=== PATIENT | female | born 1955 | race Caucasian/White ===

== ENCOUNTER 2021-07-04 22:32 | Inpatient (IN) | payer MEDICARE, SELFPAY ==
[2021-07-04 22:33] VITALS: BP 109/83; PULSE 97; RESP 14; TEMP 37.4; O2SAT 93; BMI 44.4
--- NOTE | 2021-07-04 22:43 | EKG12_ITS ---
Test Reason : DYSRHYTHMIA Blood Pressure : / mmHG Vent. Rate : 093 BPM Atrial Rate : 093 BPM P-R Int : 122 ms QRS Dur : 096 ms QT Int : 352 ms P-R-T Axes : 040 -10 038 degrees QTc Int : 437 ms Normal sinus rhythm Normal ECG Confirmed by ALLYSON PIERRE, MOOK ([id number]), assistant production editor NATASHA RAMIREZ ([id number]) on 07/05/2021 1:36:43 PM Referred By: PATRICIA Confirmed By:ISABELLA VALADEZ MD
--- NOTE | 2021-07-04 22:44 | ED.VIS.DYS ---
HPI History of Present Illness Chief Complaint: Shortness of Breath Detail of Chief Complaint: Shortness of breath worse over the last 24 hours Informant: patient Narrative Narrative: Patient presents with shortness of breath that is worsening over the last 24 hours. Patient was seen at [facility] 2 days ago and started on home oxygen. Patient diagnosed with COVID on June 25 and she has had symptoms since June 23. Patient denies any chest pain but does have some pain in her back. She describes headache. She describes intermittent fevers. Patient did not want to go back to [place] because they were not happy with care there at times. Patient has history of diabetes, hypertension, and high cholesterol. Patient's family member states that on 3 L of oxygen at home today she was dropping to 84%. [facility] Medical History (Updated 07/05/21 @ 00:[address] Oly Hodge, ) COVID Diabetes Hyperlipidemia Hypertension Allergy/AdvReac Type Severity Reaction Status Date / Time gabapentin Allergy Hives Verified 07/04/21 22:40 tramadol Allergy Hives Verified 07/04/21 22:40 Surgical History (Updated 07/04/21 @ 23:04 by Selvin Sy) History of History of hysterectomy History of lumpectomy Social History Smoking Status: Former smoker ROS [facility] ED Constitutional Constitutional ED: Reports systems reviewed and no addt'l complaints, except as documented and fever(s); Denies body ache(s), change in weight or chills Eyes Eyes: Denies acute decrease in peripheral vision, change in vision, double vision or loss of vision ENT ENT ED: Reports none; Denies ear pain, lip swelling, loss taste/smell, neck pain, otalgia or sore throat Cardiovascular Cardiovascular: Reports none; Denies abdominal pain, chest pain with activity, leg edema, lightheadedness, palpitations, rapid heart rate or syncope Respiratory/Chest Respiratory/Chest: Reports none, cough and dyspnea; Denies change in mental status, dry cough, hemoptysis, shortness of breath at rest or shortness of breath with exertion Gastrointestinal Gastrointestinal: Reports none; Denies abdominal pain, change in stool character, diarrhea, hematemesis, hematochezia, melena, rectal bleeding or vomiting Genitourinary Genitourinary ED: Reports none; Denies abdominal discomfort, anuria, dysuria, genital pain or polyuria Musculoskeletal Musculoskeletal: Reports none, back pain and myalgias; Denies arthralgias, difficulty walking, extremity pain or muscle weakness Integumentary Reports none; Denies abscess or rash Neurologic Neurologic: Reports none and headache(s); Denies abnormal gait, confusion, focal weakness, frequent falls, loss of vision, numbness, paresthesias, radicular pain, vertigo or weakness Psychiatric Psychiatric: Reports systems reviewed and no addt'l complaints, except as documented and none; Denies behavioral changes, confusion, difficulty concentrating, hallucinations, suicidal ideation, tactile hallucinations or visual hallucinations Endocrine Endocrinology: Denies none, cold intolerance, excessive sweating, fatigue or heat intolerance Hematologic/Lymphatic Hematologic/Lymphatic: Reports none; Denies anemia, easy bleeding or easy bruising Allergic/Immunologic Allergic/Immunologic ED: Denies as per HPI, none, lip swelling, mouth swelling, throat swelling, tongue swelling or hives EXAM Physical Exam Const Vital Signs: 07/04/21 22:33 07/04/21 22:53 07/04/21 23:45 Temperature 99.4 F H Temperature Source Temporal Pulse Rate 97 99 93 Respiratory Rate 14 18 15 Respiratory Effort Short of Breath Respiratory Depth Shallow Respiratory Pattern Irregular Blood Pressure 109/83 H 114/63 134/67 H Blood Pressure Mean 91 80 89 Pulse Ox 93 100 93 Oxygen Delivery Method Non-Rebreather Non-Rebreather Nasal Cannula Oxygen Flow Rate (L/min) 15 15 10 Positive well nourished and well developed General Appearance ED: well developed and NAD HEENT Reports TM's clear and moist mucous membranes normocephalic and atraumatic; Negative for trauma or tenderness Tympanic Membrane ED: Yes TM's clear Eyes PERRL and EOMs intact bilaterally General Eye ED: Negative for pale conjunctiva or scleral icterus Neck no lymphadenopathy, supple and no JVD General: Negative for tenderness Chest Wall inspection of chest normal and palpation of chest normal Chest: Negative for tenderness Resp normal respiratory effort and clear to auscultation bilaterally Effort and Inspection: Negative for respiratory distress or pain with movement Auscultation: rhonchi; Negative for diminished lung sounds Cardio regular rate, regular rhythm, S1 normal heart sound, S2 normal heart sound and no murmurs Peripheral Pulses: pulses 2+ throughout GI normal to inspection, nondistended, normoactive bowel sounds, soft to palpation, non-tender, non-distended and no masses Back/Spine no CVA tenderness and no thoracic nor lumbar tenderness Extremity normal to inspection General Extremety ED: Negative for edema General Extremity: Negative for edema Neuro oriented x3, CN's II-XII intact bilaterally, no sensory deficits noted and gait normal Sensorium / Orientation: awake, alert, oriented to person, oriented to place and oriented to time Motor Exam: strength 5/5 throughout and strength abnormal Psych mental status grossly normal Skin no rashes or lesions noted and no wounds MDM MDM MDM Narrative Medical decision making narrative: IV line established on arrival. Patient placed on high flow nasal cannula O2. Patient started on Decadron IV. Chest x-ray obtained interpreted by myself as bilateral infiltrates. CTA of the chest was obtained to rule out PE given the elevated D-dimer and COVID diagnosis and official reports pending from radiology however on my interpretation I do not appreciate any obvious large central pulmonary emboli. Case discussed with hospitalist will evaluate patient for admission for COVID-19 with hypoxemia Lab Data Attestation: I reviewed the patient's lab results. Labs: Laboratory Results - last 24 hr 07/04/21 07/04/21 07/04/21 22:47 22:47 22:47 WBC 4.9 RBC 3.81 L Hgb 10.5 L Hct 33.2 L MCV 87.1 MCH 27.6 MCHC 31.6 L RDW Std Deviation 44.3 H RDW Coeff of Adam 13.8 Plt Count 226 MPV 10.4 Immature Gran % (Auto) 1.800 H Neut % (Auto) 67.5 Lymph % (Auto) 22.5 Sherman % (Auto) 8.0 Eos % (Auto) 0.0 Baso % (Auto) 0.2 Absolute Neuts (auto) 3.3 Absolute Lymphs (auto) 1.10 Nucleated RBC % 0 D-Dimer Quant (PE/DVT) 1.19 H* Sodium 134 L Potassium 3.3 L Chloride 98 Carbon Dioxide 30.0 Anion Gap 6 BUN 30 H Creatinine 1.28 H Estim Creat Clear Calc 34.66 Est GFR (MDRD) Af Amer 54 L Est GFR (MDRD) Non-Af 44 L BUN/Creatinine Ratio 23.4 H Glucose 235 H Lactic Acid Calcium 8.6 Troponin I High Sens 12 07/04/21 22:47 WBC RBC Hgb Hct MCV MCH MCHC RDW Std Deviation RDW Coeff of Adam Plt Count MPV Immature Gran % (Auto) Neut % (Auto) Lymph % (Auto) Sherman % (Auto) Eos % (Auto) Baso % (Auto) Absolute Neuts (auto) Absolute Lymphs (auto) Nucleated RBC % D-Dimer Quant (PE/DVT) Sodium Potassium Chloride Carbon Dioxide Anion Gap BUN Creatinine Estim Creat Clear Calc Est GFR (MDRD) Af Amer Est GFR (MDRD) Non-Af BUN/Creatinine Ratio Glucose Lactic Acid 1.9 Calcium Troponin I High Sens Radiography Chest X-Ray - ED: 1 View Diagnostic Testing: Clinical Impression(s) from Imaging Studies Chest X-Ray 07/04/21 23:00 IMPRESSION: Bibasilar pulmonary infiltrates compatible with COVID pneumonia. Electronically Signed: Zeus Rico DO at 23:11 EST Tel [phone], Service support , 1 view chest x-ray obtained interpreted by myself as bilateral infiltrates. Radiology in agreement. EKG Initial EKG: Attestation: I personally reviewed and interpreted this EKG as follows: Comments: Sinus rhythm with a ventricular rate of 93 bpm with no acute ST segment changes Discharge Plan Triage Chief Complaint: Shortness of Breath ED Provider: Oly Hodge Dx/Rx/DC Orders Clinical Impression: COVID-19, Acute hypoxemic respiratory failure Primary Care Provider: Nico Guaman Referrals: Nico Guaman DO [Primary Care Provider] - Disposition Disposition: Acute Care Hospital [facility]
[2021-07-04] MEDS: dexAMETHasone 10 MG/ML Vial 6 MG IV (22:50)
[2021-07-04] MEDS: 0.9% Normal Saline 1,000 ML 150 ML IV (22:50)
[2021-07-04 22:53] VITALS: BP 114/63; PULSE 99; RESP 18; O2SAT 100; O2SAT 15
--- NOTE | 2021-07-04 23:00 | RAD_ITS ---
STUDY: X-RAY CHEST REASON FOR EXAM: Female, 66 years old. Dyspnea. COVID positive for 3 days. Increased shortness of breath today. TECHNIQUE: Single AP portable view of the chest. COMPARISON: None. FINDINGS: The lungs are hypoexpanded. There is patchy linear infiltrates at both lung bases. There is no demonstrated pleural abnormality. Normal size heart. Normal mediastinum and aura. Normal visualized pulmonary arteries. Normal visualized aortic arch and descending thoracic aorta. There are diffuse degenerative changes of the visualized thoracic spine. Normal visualized ribs, clavicles, and shoulders. There is no demonstrated abnormality of the visualized soft tissue structures of the upper abdomen. RAD/Chest 1 View (Portable) IMPRESSION: Bibasilar pulmonary infiltrates compatible with COVID pneumonia. Electronically Signed: Zeus Rico DO at 23:11 EST Tel [phone], Service support ,
[2021-07-04 23:07] LABS: Absolute Neutrophil Count 3.3 X10^3/uL (2.0-7.7); Basophil# 0.01 X10^3/uL; Basophil% 0.2 % (0-1); Hematocrit 33.2 % (37-47); Hemoglobin 10.5 g/dL (12.0-15.0); Lymphocyte % 22.5 % (19-41); Mean Corp Hgb Conc 31.6 g/dL (32-36); Mean Corpuscular Hgb 27.6 pg (27.0-32.0); Mean Corpuscular Volume 87.1 fL (81-99); Mean Platelet Vol. 10.4 fl (6.2-12.0); Monocyte# 0.39 X10^3/uL; NRBC Flagged by Analyzer 0 % (0-5); Neutrophil # 3.29 X10^3/uL (2.7-7.7); Neutrophil % 67.5 % (47-70); Platelet Count 226 K/mm3 (150-450); RBC Distribution Width CV 13.8 % (11.6-14.6); RBC Distribution Width SD 44.3 fl (35.1-43.9); Red Blood Count 3.81 M/mm3 (4.2-5.4); White Blood Count 4.9 K/mm3 (4.4-11.0)
[2021-07-04 23:27] LABS: Anion Gap 6 (5-15); BUN 30 mg/dL (7-18); BUN/Creat Ratio 23.4 RATIO (10-20); Calcium,Total 8.6 mg/dL (8.5-10.1); Chloride 98 mmol/L (98-107); Creatinine, Serum 1.28 mg/dL (0.55-1.02); EST Glomerular Filtration Rate 44 mL/min (>60); Est Glom Filt Rate - Afr Amer 54 mL/min (>60); Estimated Creatinine Clearance 34.66 ml/min; Glucose 235 mg/dL (74-106); Potassium 3.3 mmol/L (3.5-5.1); Sodium Level 134 mmol/L (136-145); Troponin-I HS 12 pg/mL (3.0-54.0)
[2021-07-04 23:28] LABS: D-Dimer Quantitative (DVT/PE) 1.19 FEU/ug/m (0.27-0.49)
--- NOTE | 2021-07-04 23:29 | CT_ITS ---
STUDY: CTA CHEST REASON FOR EXAM: Female, 66 years old. Dyspnea, elevated d-dimer RADIATION DOSAGE (If Supplied By Facility): CTDIvol = ( 17.36 ) mGy, DLP = ( 480.92 ) mGycm TECHNIQUE: The examination was performed with the intravenous administration of IV 100mL Isovue-370. Post-processing of the angiographic images was performed, with multiplanar reformation and 3D reconstruction. Individualized dose optimization techniques were used for this CT. COMPARISON: Concurrent chest radiograph FINDINGS: Normal enhancement of the main pulmonary artery and right and left pulmonary arteries. Normal enhancement of the bilateral peripheral pulmonary arteries. Respiratory motion complicates evaluation of the subsegmental pulmonary arteries. There is no demonstrated pulmonary embolism. Normal thoracic aorta and visualized great vessels. There is no demonstrated aortic dissection. Normal heart and pericardium. There are calcifications of the coronary arteries. Multiple enlarged mediastinal and bilateral hilar lymph nodes. Calcified right hilar lymph node. Normal visualized trachea and bronchi. The lungs are well expanded. Diffuse bilateral pulmonary groundglass densities. Normal pleura. Normal chest wall structures. There are degenerative changes of thoracic spine. Mild splenomegaly. CT/CTA Chest W/WO Contrast IMPRESSION: Diffuse multifocal pneumonia, presumably Covid, with reactive hilar and mediastinal lymph nodes. No central or segmental pulmonary embolism. No arterial dissection. Electronically Signed: Fitz Stapleton MD at 0:56 EST Tel , Service support ,
[2021-07-04 23:33] LABS: Lactic Acid 1.9 mmol/L (0.4-1.9)
[2021-07-04 23:45] VITALS: BP 134/67; PULSE 93; RESP 15; O2SAT 93
--- NOTE | 2021-07-04 23:57 | PCM.HP.STD ---
HPI - General General Date of Admission: 07/04/21 Date of Service: 07/04/21 Chief Complaint: COVID positive, worsening, hypoxic. HPI Narrative The patient is a 66 y/o F w/ PMHx: Morbid Obesity, Suspected chronic anemia, HTN, HLD, Diabetes mellitus type II, Former tobacco use who presents to the [facility] ED on 07/04/21 with history of COVID symptoms including fever, chills, headache, sore throat, mild altered sense of taste and smell, body aches, nausea, emesis, diarrhea all of those which have lessened however she still has ongoing cough and shortness of breath which has been worsening starting 06/23/21 with positive COVID testing on 06/25/21 in [place] with reported evaluation [facility] the ED at [facility] 2 days prior to current presentation with discharge on supplemental 2L NC oxygen and administration of steroids; however, she had increased dyspnea with low 80s oxygenation on 2-3L at home with more severe dyspnea on day of ED presentation prompting re-evaluation. Patient is not vaccinated against COVID-19. Work-up in the ED included T99.4, heart rate 97, BP 109/83, respiratory rate 14, initial presentation noted to be 93% on a nonrebreather with 15 L, CBC with WBC 4.9, hemoglobin 10.5, platelet 226 without marked shift, D-dimer 1.19, BMP with sodium 134, potassium 3.3, BUN/current and 30/1.28, glucose 235, lactic acid 1.9, high-sensitivity troponin 12, chest x-ray with bibasilar pulmonary infiltrates consistent with COVID-pneumonia, blood culture pending per ED, CTPA with diffuse multifocal pneumonia consistent with COVID-pneumonia with reactive hilar and mediastinal lymph nodes with no central or segmental PE or arterial dissection. In the ED patient ministered Decadron 6 mg IV x1 as well as normal saline. [facility] Medical History (Updated 07/05/21 @ 01:[address] Gabi Love MD) COVID Diabetes Former tobacco use Hyperlipidemia Hypertension Morbid obesity Home Medications atorvastatin 80 mg PO QHS 07/05/21 [History Last Taken Unknown] glyburide 1.25 mg PO BID 07/05/21 [History Last Taken Unknown] lisinopril-hydrochlorothiazide 1 tab PO DAILY 07/05/21 [History Last Taken Unknown] loratadine 10 mg PO QHS 07/05/21 [History Last Taken Unknown] metformin 850 mg PO TID 07/05/21 [History Last Taken Unknown] omeprazole-sodium bicarbonate [Zegerid] 1 packet PO QODAY 07/05/21 [History Last Taken Unknown] pioglitazone 15 mg PO DAILY 07/05/21 [History Last Taken Unknown] Allergy/AdvReac Type Severity Reaction Status Date / Time gabapentin Allergy Hives Verified 07/04/21 22:40 tramadol Allergy Hives Verified 07/04/21 22:40 Family History (Updated 07/05/21 @ 01:[address] Gabi Love MD) Mother PAF (paroxysmal atrial fibrillation) Heart disease Father Myocardial infarction Heart disease Surgical History (Updated 07/05/21 @ 01:[address] Gabi Love MD) H/O ovarian cystectomy History of History of hysterectomy History of lumpectomy Hx of tubal ligation S/P carpal tunnel release Social History (Updated 07/05/21 @ 01:[address] Gabi Love MD) household members: none Smoking Status: Former smoker how long ago did patient quit smoking: Quit 21 years prior, smoked ~ 1/2 ppd until quit, started as teen. alcohol intake: never substance use type: does not use ROS ROS Narrative Admission Review of Systems: CONSTITUTIONAL: No weight loss, + fever, chills, weakness or fatigue. HEENT: + Headache, sore throat, altered sense of taste and smell. Eyes: No visual loss, blurred vision, double vision or yellow sclerae. Ears, Nose, Throat: No hearing loss, sneezing. SKIN: No rash or itching, lesions, wounds. CARDIOVASCULAR: No chest pain, chest pressure or chest discomfort, palpitations, edema, orthopnea, syncopal events. RESPIRATORY: + shortness of breath, cough, No marked sputum, wheezing, hemoptysis. GASTROINTESTINAL: + anorexia, nausea, vomiting, diarrhea, No abdominal pain, melena, BRBPR. GENITOURINARY: No dysuria, frequency, urgency or retention. NEUROLOGICAL: + headache, No dizziness, syncope, paralysis, ataxia, numbness or tingling in the extremities, focal weakness, change in bowel or bladder control, seizure. MUSCULOSKELETAL: + muscle, back pain, joint pain or stiffness. HEMATOLOGIC: No anemia, bleeding or bruising. LYMPHATICS: No enlarged nodes. No history of splenectomy. PSYCHIATRIC: No history of depression or anxiety. ENDOCRINOLOGIC: No reports of sweating, cold or heat intolerance. No polyuria or polydipsia. ALLERGIES: No history of asthma, hives, eczema or rhinitis. Vital Signs Vital Signs Vital Signs: 07/04/21 22:33 07/04/21 22:53 07/04/21 23:45 Temperature 99.4 F H Temperature Source Temporal Pulse Rate 97 99 93 Respiratory Rate 14 18 15 Respiratory Effort Short of Breath Respiratory Depth Shallow Respiratory Pattern Irregular Blood Pressure 109/83 H 114/63 134/67 H Blood Pressure Mean 91 80 89 Pulse Ox 93 100 93 Oxygen Delivery Method Non-Rebreather Non-Rebreather Nasal Cannula Oxygen Flow Rate (L/min) 15 15 10 Weight Weight: 243 lb Body Mass Index (BMI) 44.4 Physical Exam Narrative Physical Examination: General: Awake, alert, oriented x 3 and cooperative, seated upright in the ED bed, fatigued and ill-appearing, increased respiratory rate and some accessory muscle usage, on 15 L currently. Skin: Normal color, normal turgor, no icterus, no cyanosis. HEENT: AT/NC, EOMI, PERRLA, moderately dry MM, no carotid bruits or JVD noted; however, thickened neck makes examination difficult. Lungs: Diffusely diminished, greater bases, increased respiratory rate, accessory muscle usage, evidence of respiratory distress, no rales, ronchi or wheezing. Heart: Mildly tachycardic with regular rhythm; no gallop, rub audible. Abdomen: Soft, morbidly obese, no obvious TTP, unable to discern distention given habitus, distant hyperactive bowel sounds, unable to discern HSM secondary to habitus. Extremities: No cyanosis, clubbing, or edema. Neurological: Patient awake, alert, oriented as noted, cognitive function intact; pupils equally reactive to light and accommodation, cranial nerves II-XII grossly normal, moving all 4 extremities, no focal deficits, strength severely globally decreased secondary to acute presentation. Psychiatric: Affect appears fatigued, ill-appearing, evidence of respiratory distress, no acute evidence of depressive or anxiety feelings. Results Lab / Micro Data Result Diagrams: 07/04/21 22:47 07/04/21 22:47 Labs: Laboratory Results - last 24 hr 07/04/21 22:47: WBC 4.9, RBC 3.81 L, Hgb 10.5 L, Hct 33.2 L, MCV 87.1, MCH 27.6, MCHC 31.6 L, RDW Std Deviation 44.3 H, RDW Coeff of Adam 13.8, Plt Count 226, MPV 10.4, Immature Gran % (Auto) 1.800 H, Neut % (Auto) 67.5, Lymph % (Auto) 22.5, Ramsey % (Auto) 8.0, Eos % (Auto) 0.0, Baso % (Auto) 0.2, Absolute Neuts (auto) 3.3, Absolute Lymphs (auto) 1.10, Nucleated RBC % 0 07/04/21 22:47: D-Dimer Quant (PE/DVT) 1.19 H* 07/04/21 22:47: Sodium 134 L, Potassium 3.3 L, Chloride 98, Carbon Dioxide 30.0, Anion Gap 6, BUN 30 H, Creatinine 1.28 H, Estim Creat Clear Calc 34.66, Est GFR (MDRD) Af Amer 54 L, Est GFR (MDRD) Non-Af 44 L, BUN/Creatinine Ratio 23.4 H, Glucose 235 H, Calcium 8.6, Troponin I High Sens 12 07/04/21 22:47: Lactic Acid 1.9 Radiology Impression Chest X-Ray 07/04/21 23:00 IMPRESSION: Bibasilar pulmonary infiltrates compatible with COVID pneumonia. Electronically Signed: Zeus Rico DO at 23:11 EST Tel [phone], Service support , Assessment & Plan Assessment/Plan (1) COVID-19: (2) Acute hypoxemic respiratory failure: (3) Pneumonia due to COVID-19 virus: PLAN: The patient is a 66 y/o F w/ PMHx: Morbid Obesity, Suspected chronic anemia, HTN, HLD, Diabetes mellitus type II, Former tobacco use who presents to the [facility] ED on 07/04/21 with history of COVID symptoms including fever, chills, headache, sore throat, mild altered sense of taste and smell, body aches, nausea, emesis, diarrhea all of those which have lessened however she still has ongoing cough and shortness of breath which has been worsening starting 06/23/21 with positive COVID testing on 06/25/21 in [place] with reported evaluation [facility] the ED at [facility] 2 days prior to current presentation with discharge on supplemental 2L NC oxygen and administration of steroids; however, she had increased dyspnea. #1. Acute Hypoxic Respiratory Failure secondary to Acute Bilateral Pneumonia secondary to Acute Viral Syndrome, COVID-19: Will admit to the PCU, maintain on COVID precautions, will maintain on oxygen with wean as tolerated to room air, PRN albuterol, HOB, IS parameters w/ pending sputum cultures and urine antigens, will obtain hepatic profile, procalcitonin, CRP, CPK, Ferritin, LDH and BNP, continue supportive care including q 2 hour turning including prone given no prone bed availability and judicious hydration, closely monitor for worsening status for ARDS and multiorgan failure, will initiate and continue IV decadron x 10 doses, given timeline patient is not a candidate for IV remdesivir. If respiratory status worsens and patient requires airvo or BIPAP transition will initiate barcitinib regimen additionally with ID involvement. #2. Hypertension: Continue home regimen including lisinopril?hydrochlorothiazide, PRN hydralazine. #3. Hyperlipidemia: Continue home statin regimen. #4. Diabetes mellitus type II: Hold oral home regimen, ADA diet, accu checks w/ ISS. #5. Suspected chronic anemia, normocytic: Admission Hgb 10.5, no baseline in system from prior, suspect chronic, will plan repeat CBC in AM and [place] health records requested. #6. Morbid Obesity: Weight loss and lifestyle changes encouraged, nutrition consulted. #7. Former tobacco use: Encouraged continued tobacco cessation. #8. DVT prophylaxis: SCDs, Lovenox. #9. CODE status: Patient does not have HCPOA or living will in place. Patient is an unvaccinated status with COVID-pneumonia with hypoxic respiratory failure therefore discussed CODE status at length including difference between FULL code, DNR-CCA and DNR-CC status. Following discussions about the differences in these status, requested Full Code status. Patient is amenable to Airvo, BiPAP as well as barcitinib if necessary. Advanced Care Planning Face to Face Time: 16 minutes. Charges/Coding Visit Charges Inpatient E&M: 33831 Init Hosp L3 Procedures Hospitalists Procedures: 46251 Advncd Care Plan 30 Min
[2021-07-05] VITALS (15 sets, daily range): BP systolic 113–150; BP diastolic 56–89; PULSE 59–110; RESP 16–20; TEMP 36.1–37.6; O2SAT 10–96; BMI 42.7
--- NOTE | 2021-07-05 01:22 | PCS.PANDOC ---
PANDEMIC DOCUMENTATION INITIATED: Date: 02/05/2021 Time: 190
--- NOTE | 2021-07-05 01:26 | NURSING ---
Patient requestin to have non-rebreather on due to being a mouth breather, states feels better
[2021-07-05 02:07] LABS: Ferritin 532 ng/mL (8-252); Magnesium 2.3 mg/dL (1.6-2.6)
[2021-07-05 02:11] LABS: BNP,B-Type NATRIURETIC PEPTIDE 15.9 pg/mL (0-100)
[2021-07-05] MEDS: Potassium Chloride Oral Tablet 20 MEQ 40 MEQ PO (02:12)
[2021-07-05] MEDS: guaiFENesin 10 ML UDC (200MG/10ML) 20 ML PO (02:12)
[2021-07-05] MEDS: BENZOCAINE/MENTHOL 1 LOZENGE MUCOUS MEM (02:13)
[2021-07-05] MEDS: 0.9% Normal Saline 1,000 ML 100 ML IV (02:13)
[2021-07-05 02:19] LABS: Procalcitonin 0.25 ng/mL (0.00-0.09)
[2021-07-05 06:04] LABS: Absolute Lymphocyte Count 0.61 X10^3/uL (0.83-4.51); Absolute Neutrophil Count 2.9 X10^3/uL (2.0-7.7); Basophil# 0.01 X10^3/uL; Basophil% 0.3 % (0-1); Hematocrit 31.4 % (37-47); Hemoglobin 9.8 g/dL (12.0-15.0); Lymphocyte # 0.61 X10^3/ul (0.83-4.51); Lymphocyte % 15.8 % (19-41); Mean Corp Hgb Conc 31.2 g/dL (32-36); Mean Corpuscular Hgb 27.1 pg (27.0-32.0); Mean Corpuscular Volume 86.7 fL (81-99); Mean Platelet Vol. 10.3 fl (6.2-12.0); Monocyte# 0.23 X10^3/uL; Monocyte% 5.9 % (0-10); NRBC Flagged by Analyzer 0 % (0-5); Neutrophil # 2.93 X10^3/uL (2.7-7.7); Neutrophil % 75.7 % (47-70); POSITIVE MORPHOLOGY YES; Platelet Count 232 K/mm3 (150-450); RBC Distribution Width CV 13.7 % (11.6-14.6); RBC Distribution Width SD 43.9 fl (35.1-43.9); Red Blood Count 3.62 M/mm3 (4.2-5.4); White Blood Count 3.9 K/mm3 (4.4-11.0)
[2021-07-05 06:17] LABS: Differential Indicated SCAN CRITERIA MET
[2021-07-05 06:41] LABS: ALB/GLOB Ratio 0.7 RATIO (0.9-2.4); AST(SGOT) 36 U/L (15-37); Alanine Aminotransfer ALT/SGPT 29 U/L (13-56); Albumin, Serum 2.7 g/dL (3.2-5.0); Alkaline Phosphatase 41 U/L (45-117); Anion Gap 9 (5-15); BUN 29 mg/dL (7-18); BUN/Creat Ratio 24.6 RATIO (10-20); Chloride 98 mmol/L (98-107); Creatinine, Serum 1.18 mg/dL (0.55-1.02); EST Glomerular Filtration Rate 49 mL/min (>60); Est Glom Filt Rate - Afr Amer 59 mL/min (>60); Estimated Creatinine Clearance 37.59 ml/min; Globulin 4.1 g/dL (2.2-4.2); Glucose 350 mg/dL (74-106); Potassium 4.3 mmol/L (3.5-5.1); Protein, Total 6.8 g/dL (6.4-8.2); Sodium Level 135 mmol/L (136-145)
[2021-07-05] MEDS: Insulin Lispro 100 UNIT/ML INSULN.PEN SC ×4 (07:04→20:14)
[2021-07-05 07:10] LABS: Bedside Glucose 346 mg/dL (70-110)
[2021-07-05] MEDS: Glucerna Shake 120 ML LIQUID PO (09:09)
[2021-07-05] MEDS: Lisinopril 20 MG Tablet PO (09:09)
[2021-07-05] MEDS: Enoxaparin 40 MG/0.4 ML Syringe SC ×2 (09:09→20:16)
[2021-07-05] MEDS: hydroCHLOROthiazide 25 MG Tablet PO (09:09)
[2021-07-05 12:16] LABS: Bedside Glucose 339 mg/dL (70-110)
--- NOTE | 2021-07-05 13:20 | CASEMGMT ---
RN CM DEBONE SUPERVISOR CM spoke w/patient for initial transition planning/care coordination assessment. RERE PRIETO introduced self and role at [facility]. Pt voices understanding and consents to assessment at this time. Pt is A/O at this time and answers all questions appropriately. Care providers, pharmacy, and demographics verified/updated at this time. COVID +. Pt stated testing was completed @ [facility] in [place]. PCP: Dr Nico Guaman Specialists: none Preferred Pharmacy: [facility] Retail Insurance: [employer] [facility] Prescription Benefit: Yes Living Will/HPOA: Pt does not currently have LW/HCPOA LNOK: SonBrandyn (lives in [place]). Son, Jose Luis BROWN, (lives in [place]) Living Arrangements: Lives alone in apartment. Has been staying w/her son, Brandyn, in [place], since Friday when she became ill. Brandyn's fiance, Shana Fishman, and 4 children also live in the home. Brandyn and Shana Fishman both had COVID @ end of May. They have both returned to work. The 4 children have not been ill and have returned back to school. Pt states they only have one bathroom in the home. RERE PRIETO instructed on importance of sanitizing after use. Pt states she sleeps on an adjustable bed @ her own home, but has been sleeping on a recliner @ her son's home in the living room. She states the rest of family only go into the living room on occasion, but they usually stay in their bedrooms. RERE PRIETO instructed on the importance of isolating from children as much as possible and to not share same living space. RERE PRIETO inquired if there was an option for her to stay isolated in a separate bedroom while @ her son's home. She states she does not think so, stating there is only one bedroom on the main floor and the 17-yr-old sleeps in there and also mentioned how the recliner would need to be moved, as she cannot sleep in a regular bed/cannot lay flat. Pt states @ her baseline she uses a walker and was independent in her apt, but d/t increased weakness, her son and Shana Fishman have been needing to assist her out of the recliner and to the bathroom and have been assisting w/getting fluids and food for her. Transportation: Pt, family DME: has the following DME: shower chair, walker, pulse ox, functioning glucometer. She states she thinks it is still @ her apartment, but plans to have her son pick it up for her to take to his home. She states is also out of glucometer strips. She has the [employer] brand glucometer and plans to ask son to get more strips @ [facility] for it. Pt was just in [place] ED a couple days ago and was set up w/home O2 through [employer] [facility] and that the small portable concentrator they gave her only goes up to 3 l/m. The portable concentrator is not at [facility] at this time, but pt states her son can bring it in @ time of discharge. While RN CM on the phone w/pt, pt received a call from [employer] to make arrangements for concentrator and portable tank to be delivered to pt's home. Pt informed the male worker from [facility] that she is currently hospitalized. Call placed to Dayanara @ [facility] in [place]: [phone]. She states pt's current O2 orders are for 2 l/m continuously. She is aware pt is hospitalized and plans to discharge to her son's home in [place]. She confirms they do service that area. She states the tank pt currently has is called an Ox-Life and it is a portable concentrator. She states it can only go up to 4l/m. She requests [employer] [facility] DME be notified at time of pt's discharge so they can deliver larger concentrator and portable O2 tank to pt's son's home. If pt requires more than 4lpm, will need O2 script and larger portable tank delivered to [facility] prior to discharge. Pt states is interested in Medical alert button info. List of companies that provide this given to RN to give to pt. HHC/SNF: No hx of either. Pt states does not want to go to a SNF--she wishes to d/c to her son's home, if able, stating, Hopefully I'll be well enough. Pt denies having preference of HHC agency. Aware [facility] has HHC and states would be agreeable to [facility] for therapy and states she would also like an aide as well. CM to follow for home oxygen needs and any further discharge planning/needs. Pt voices no further concerns/needs at this time. Advised pt to ask for CM if any further questions/concerns/needs arise. Voices understanding. PLAN: Home to son's house, if able, w/HHC for SN, PT/OT, and an aide. PT/OT evals pending. CM to follow for any increase in O2 needs @ d/c. Ellen RUIZN RN CM
--- NOTE | 2021-07-05 13:59 | PN.HOSP_ITS ---
Subjective Subjective Patient seen and examined. She looked quite weak. She said her shortness of breath was improving. She also complained of coughing. Review of symptoms otherwise negative. She was on 13 L of oxygen at time of review. Objective Data Objective Data Vital Signs: Vital Signs Temp Pulse Resp BP Pulse Ox 98.7 F 110 H 20 H 121/59 H 10 07/05/21 09:22 07/05/21 09:22 07/05/21 09:22 07/05/21 09:22 07/05/21 12:17 Oxygen Flow Rate (L/min) 92 Oxygen Delivery Method High Flow Weight: 233 lb 11.04 oz Body Mass Index (BMI) 42.7 Intake & Output: Intake and Output for Last 24 Hours 07/03/21 07/04/21 07/05/21 23:59 23:59 23:59 Intake Total 860 / 860 Balance 860 / 860 Lab / Micro Data Result Diagrams: 07/05/21 05:26 07/05/21 05:26 Labs: Laboratory Results - last 24 hr 07/04/21 22:47: WBC 4.9, RBC 3.81 L, Hgb 10.5 L, Hct 33.2 L, MCV 87.1, MCH 27.6, MCHC 31.6 L, RDW Std Deviation 44.3 H, RDW Coeff of Adam 13.8, Plt Count 226, MPV 10.4, Immature Gran % (Auto) 1.800 H, Neut % (Auto) 67.5, Lymph % (Auto) 22.5, Clay % (Auto) 8.0, Eos % (Auto) 0.0, Baso % (Auto) 0.2, Absolute Neuts (auto) 3.3, Absolute Lymphs (auto) 1.10, Nucleated RBC % 0 07/04/21 22:47: D-Dimer Quant (PE/DVT) 1.19 H* 07/04/21 22:47: Sodium 134 L, Potassium 3.3 L, Chloride 98, Carbon Dioxide 30.0, Anion Gap 6, BUN 30 H, Creatinine 1.28 H, Estim Creat Clear Calc 34.66, Est GFR (MDRD) Af Amer 54 L, Est GFR (MDRD) Non-Af 44 L, BUN/Creatinine Ratio 23.4 H, Glucose 235 H, Calcium 8.6, Troponin I High Sens 12 07/04/21 22:47: Lactic Acid 1.9 07/04/21 22:47: Magnesium 2.3, Ferritin 532 H, C-React Prot Ext Range 100.00 H 07/04/21 22:47: B-Natriuretic Peptide 15.9 07/04/21 22:47: Procalcitonin 0.25 H 07/05/21 05:26: WBC 3.9 L, RBC 3.62 L, Hgb 9.8 L, Hct 31.4 L, MCV 86.7, MCH 27.1, MCHC 31.2 L, RDW Std Deviation 43.9, RDW Coeff of Adam 13.7, Plt Count 232, MPV 10.3, Immature Gran % (Auto) 2.300 H, Neut % (Auto) 75.7 H, Lymph % (Auto) 15.8 L, Clay % (Auto) 5.9, Eos % (Auto) 0.0, Baso % (Auto) 0.3, Absolute Neuts (auto) 2.9, Absolute Lymphs (auto) 0.61 L, Nucleated RBC % 0 07/05/21 05:26: Sodium 135 L, Potassium 4.3, Chloride 98, Carbon Dioxide 28.0, Anion Gap 9, BUN 29 H, Creatinine 1.18 H, Estim Creat Clear Calc 37.59, Est GFR (MDRD) Af Amer 59 L, Est GFR (MDRD) Non-Af 49 L, BUN/Creatinine Ratio 24.6 H, Glucose 350 H, Calcium 8.0 L, Total Bilirubin 0.70, AST 36, ALT 29, Alkaline Phosphatase 41 L, Total Protein 6.8, Albumin 2.7 L, Globulin 4.1, Albumin/Globulin Ratio 0.7 L 07/05/21 07:02: POC Glucose 346 H 07/05/21 12:06: POC Glucose 339 H Micro: Microbiology 07/05/21 10:35 Sputum, Expectorated/Coughed Gram Stain - Final Radiography Diagnostic Testing: Radiology Impression Chest X-Ray 07/04/21 23:00 IMPRESSION: Bibasilar pulmonary infiltrates compatible with COVID pneumonia. Electronically Signed: Zeus Rico DO at 23:11 EST Tel [phone], Service support , Chest CTA 07/04/21 23:29 IMPRESSION: Diffuse multifocal pneumonia, presumably Covid, with reactive hilar and mediastinal lymph nodes. No central or segmental pulmonary embolism. No arterial dissection. Electronically Signed: Fitz Stapleton MD at 0:56 EST Tel , Service support , Physical Exam Const alert, oriented x3 and no apparent distress Constitutional Narrative: lethargic Exam Limitations: no limitations HEENT head/scalp atraumatic and moist oral mucous membranes Head and Scalp: normocephalic Eyes PERRL, EOMs intact bilaterally and conjunctivae normal Neck no lymphadenopathy Resp Resp Narrative: diminished breath sounds bibasally, no wheezes or crackles. On 13L of oxygen by nasal canula Cardio regular rate, regular rhythm, S1 normal heart sound and S2 normal heart sound GI normal to inspection, nondistended, normoactive bowel sounds, soft to palpation, non-tender and non-distended Extremity normal to inspection, full ROM and no clubbing, cyanosis or edema Peripheral Pulses: Yes pulses 2+ throughout Skin no rashes or lesions noted Neuro oriented x3, CN's II-XII intact bilaterally and moves all extremities Sensorium / Orientation: awake and alert Psych affect normal Assessment & Plan Assessment/Plan (1) Pneumonia due to COVID-19 virus: (2) Acute hypoxemic respiratory failure: PLAN: #Acute hypoxic respiratory failure due to covid 19 pneumonia * on 3L of oxygen. Titrate to maintain sats >90% * on decadron * symptoms staete don 06/23/2021; to remain in self isolation till 07/13/2021. * not a candidate for remdesivir due to her symptoms starting > 10 days ago. * If respiratory status worsens, will consult ID as she may be a candidate for baricitinib. * #Hypertension: on lisinopril and HCTZ. IV hydralazine prn #Hyperlipidemia: on statin Elevated D-dimer: D-dimer was 1.19. CTA of the chest negative for PE. Likely due to COVID. #Type 2 diabetes mellitus: On insulin sliding scale. Checks ACH S. #Hyperlipidemia: On statin #Morbid obesity: BMI is 42.7. Complicates acute care, expected recovery and prognosis. #GI prophylaxis: Pantoprazole. DVT prophylaxis: Lovenox 40mg bid Charges/Coding Visit Charges Inpatient E&M: 46159 Subs Hosp L3
[2021-07-05 16:36] LABS: Bedside Glucose 294 mg/dL (70-110)
[2021-07-05] MEDS: Loratadine 10 MG Tablet PO (20:16)
[2021-07-05] MEDS: Atorvastatin Calcium 80 MG Tablet PO (20:16)
[2021-07-05 20:31] LABS: Bedside Glucose 372 mg/dL (70-110)
--- NOTE | 2021-07-05 23:53 | NURSING ---
decrease 02 to 5lnc
[2021-07-06] VITALS (17 sets, daily range): BP systolic 114–147; BP diastolic 58–67; PULSE 55–80; RESP 16–20; TEMP 36.4–36.7; O2SAT 74–99
[2021-07-06] MEDS: guaiFENesin 10 ML UDC (200MG/10ML) 20 ML PO ×2 (03:14→08:36)
--- NOTE | 2021-07-06 03:19 | NURSING ---
pt got into a coughing spell. po drop to 84% on 5lnc. 02 increased to 8lnc and Robitussin given
[2021-07-06 05:59] LABS: Absolute Lymphocyte Count 0.91 X10^3/uL (0.83-4.51); Absolute Neutrophil Count 3.3 X10^3/uL (2.0-7.7); Basophil# 0.01 X10^3/uL; Basophil% 0.2 % (0-1); Hematocrit 30.7 % (37-47); Hemoglobin 9.5 g/dL (12.0-15.0); Lymphocyte # 0.91 X10^3/ul (0.83-4.51); Lymphocyte % 19.4 % (19-41); Mean Corp Hgb Conc 30.9 g/dL (32-36); Mean Corpuscular Hgb 27.2 pg (27.0-32.0); Mean Platelet Vol. 10.5 fl (6.2-12.0); Monocyte# 0.46 X10^3/uL; Monocyte% 9.8 % (0-10); NRBC Flagged by Analyzer 0 % (0-5); Neutrophil # 3.26 X10^3/uL (2.7-7.7); Neutrophil % 69.5 % (47-70); Platelet Count 284 K/mm3 (150-450); RBC Distribution Width CV 13.6 % (11.6-14.6); RBC Distribution Width SD 43.9 fl (35.1-43.9); Red Blood Count 3.49 M/mm3 (4.2-5.4); White Blood Count 4.7 K/mm3 (4.4-11.0)
[2021-07-06 06:24] LABS: Anion Gap 7 (5-15); BUN 34 mg/dL (7-18); BUN/Creat Ratio 27.9 RATIO (10-20); Calcium,Total 8.1 mg/dL (8.5-10.1); Chloride 101 mmol/L (98-107); Creatinine, Serum 1.22 mg/dL (0.55-1.02); EST Glomerular Filtration Rate 47 mL/min (>60); Est Glom Filt Rate - Afr Amer 57 mL/min (>60); Estimated Creatinine Clearance 36.36 ml/min; Glucose 278 mg/dL (74-106); Potassium 3.8 mmol/L (3.5-5.1); Sodium Level 137 mmol/L (136-145)
[2021-07-06] MEDS: Insulin Lispro 100 UNIT/ML INSULN.PEN SC ×4 (06:37→20:12)
[2021-07-06 06:46] LABS: Bedside Glucose 259 mg/dL (70-110)
--- NOTE | 2021-07-06 08:31 | CPS ---
PATIENT WEANED TO 5 LPM
[2021-07-06] MEDS: Pantoprazole Sodium 20 MG Tablet PO (08:36)
[2021-07-06] MEDS: Lisinopril 20 MG Tablet PO (08:36)
[2021-07-06] MEDS: dexAMETHasone 4 MG/ML Vial 6 MG IV (08:36)
[2021-07-06] MEDS: hydroCHLOROthiazide 25 MG Tablet PO (08:36)
[2021-07-06] MEDS: Acetaminophen 325 MG Tablet 650 MG PO (08:36)
[2021-07-06] MEDS: Enoxaparin 40 MG/0.4 ML Syringe SC ×2 (08:37→20:12)
[2021-07-06] MEDS: 0.9% Saline Lock 10 ML Syringe IV ×2 (08:37→20:12)
--- NOTE | 2021-07-06 11:18 | CASEMGMT ---
RERE PRIETO NOTE: Call placed to Martina @ [facility] in [place] @ [phone] to inform her anticipate pt will be medically ready for discharge home this weekend. RERE PRIETO inquired if Home O2 set-up could be arranged today, if possible. Per Martina, they would not be able to do home O2 set up today. She confirms the Ox-Life that was provided to pt goes up to 4l/m and can sustain pt for several days to weeks, if needed. She states if pt discharges home over the weekend w/4l/m or less O2, she can go home on the Ox-Life she currently has and they would arrange for home O2 set up sometime next week. She confirmed, if pt needs more than 4 l/m @ discharge, they can deliver a larger portable oxygen tank to [facility] for pt to go home on. She also confirms she is aware pt plans to discharge to pt's son's home in [place]. Call placed to pt and she was informed of all of the above. After RERE PRIETO spoke w/pt, pt's son, Brandyn, called this RERE PRIETO. He was also notified of all of the above. He states he has the Ox-Life/portable oxygen concentrator @ his home and he confirms he can bring it w/him when he comes to pick pt up @ discharge for pt to go home on. He is aware [facility] will deliver larger portable concentrator to [facility] for pt to go home on if she requires more than 4 lpm O2. Ellen RUIZN RERE PRIETO
--- NOTE | 2021-07-06 11:45 | CASEMGMT ---
Addendum entered by Alycia Palmer 07/06/21 13:23: Call from Amelia at [facility] and she states they can accept pt and do SOC 07/10/21. Amelia is aware that pt will be staying at son's home. Pt states her physician is in [place] and Amelia updated. Pt voices no further questions/concerns/needs. Green sheet left on chart for O2, HHC. Tyson JERNIGAN CM Original Note: Pt is currently on 4L nc. Call to Amelia at [facility] to see if they have reviewed pt for acceptance and she states she will call this RN CONNER back. Tyson JERNIGAN CM
[2021-07-06 12:00] LABS: Bedside Glucose 354 mg/dL (70-110)
--- NOTE | 2021-07-06 12:56 | PN.HOSP_ITS ---
Subjective Subjective Patient seen and examined. She feels quite weak today. She remains on oxygen and was on 5 L of oxygen at time of review. Review of systems otherwise negative. Objective Data Objective Data Vital Signs: Vital Signs Temp Pulse Resp BP Pulse Ox 97.8 F 63 16 114/58 L 95 07/06/21 12:02 07/06/21 12:02 07/06/21 12:02 07/06/21 12:02 07/06/21 12:02 Oxygen Flow Rate (L/min) 3 Oxygen Delivery Method Nasal Cannula Weight: 236 lb 15.951 oz Body Mass Index (BMI) 42.7 Intake & Output: Intake and Output for Last 24 Hours 07/04/21 07/05/21 07/06/21 23:59 23:59 23:59 Intake Total 2760 / 2760 600 / 600 Output Total 800 / 800 Balance 2760 / 2760 -200 / -200 Lab / Micro Data Result Diagrams: 07/06/21 04:25 07/06/21 04:25 Labs: Laboratory Results - last 24 hr 07/05/21 16:26: POC Glucose 294 H 07/05/21 20:13: POC Glucose 372 H 07/06/21 04:25: WBC 4.7, RBC 3.49 L, Hgb 9.5 L, Hct 30.7 L, MCV 88.0, MCH 27.2, MCHC 30.9 L, RDW Std Deviation 43.9, RDW Coeff of Adam 13.6, Plt Count 284, MPV 10.5, Immature Gran % (Auto) 1.100 H, Neut % (Auto) 69.5, Lymph % (Auto) 19.4, [place] % (Auto) 9.8, Eos % (Auto) 0.0, Baso % (Auto) 0.2, Absolute Neuts (auto) 3.3, Absolute Lymphs (auto) 0.91, Nucleated RBC % 0 07/06/21 04:25: Sodium 137, Potassium 3.8, Chloride 101, Carbon Dioxide 29.0, A nion Gap 7, BUN 34 H, Creatinine 1.22 H, Estim Creat Clear Calc 36.36, Est GFR (MDRD) Af Amer 57 L, Est GFR (MDRD) Non-Af 47 L, BUN/Creatinine Ratio 27.9 H, Glucose 278 H, Calcium 8.1 L 07/06/21 06:35: POC Glucose 259 H 07/06/21 11:37: POC Glucose 354 H Micro: Microbiology 07/05/21 10:35 Sputum, Expectorated/Coughed Gram Stain - Final 07/05/21 10:35 Sputum, Expectorated/Coughed Respiratory Culture - Preliminary Appears to be normal respiratory jodee. Further studies to follow. 07/06/21 03:45 Urine, Random Legionella Antigen - Final 07/06/21 03:45 Urine, Clean Catch Streptococcus pneumoniae Antigen (M - Final Physical Exam Const alert, oriented x3 and no apparent distress Constitutional Narrative: lethargic Exam Limitations: no limitations Nutritional Appearance: morbidly obese HEENT head/scalp atraumatic and moist oral mucous membranes Head and Scalp: normocephalic Eyes PERRL, EOMs intact bilaterally and conjunctivae normal Neck no lymphadenopathy Resp Resp Narrative: diminished breath sounds bibasally, no wheezes or crackles. On 5L of oxygen by nasal canula at time of review Cardio regular rate, regular rhythm, S1 normal heart sound and S2 normal heart sound GI normal to inspection, nondistended, normoactive bowel sounds, soft to palpation, non-tender and non-distended Extremity normal to inspection, full ROM and no clubbing, cyanosis or edema Skin no rashes or lesions noted Neuro oriented x3, CN's II-XII intact bilaterally and moves all extremities Sensorium / Orientation: awake and alert Psych affect normal Assessment & Plan Assessment/Plan (1) Pneumonia due to COVID-19 virus: (2) Acute hypoxemic respiratory failure: PLAN: #Acute hypoxic respiratory failure due to covid 19 pneumonia * on 5L of oxygen. Titrate to maintain sats >90% * on decadron * symptoms started 06/23/2021; to remain in self isolation till 07/13/2021. * not a candidate for remdesivir due to her symptoms starting > 10 days ago. * If respiratory status worsens, will consult ID as she may be a candidate for baricitinib. * #Hypertension: on lisinopril and HCTZ. IV hydralazine prn #Hyperlipidemia: on statin Elevated D-dimer: D-dimer was 1.19. CTA of the chest negative for PE. Likely due to COVID. #Type 2 diabetes mellitus: On insulin sliding scale. Checks ACH S. #Hyperlipidemia: On statin #Morbid obesity: BMI is 42.7. Complicates acute care, expected recovery and prognosis. #GI prophylaxis: Pantoprazole. DVT prophylaxis: Lovenox 40mg bid Charges/Coding Visit Charges Inpatient E&M: 00421 Subs Hosp L2
[2021-07-06 17:05] LABS: Bedside Glucose 374 mg/dL (70-110)
[2021-07-06] MEDS: Loratadine 10 MG Tablet PO (20:12)
[2021-07-06] MEDS: Atorvastatin Calcium 80 MG Tablet PO (20:12)
[2021-07-06 20:21] LABS: Bedside Glucose 418 mg/dL (70-110)
[2021-07-07] VITALS (13 sets, daily range): BP systolic 114–140; BP diastolic 59–78; PULSE 55–90; RESP 16–20; TEMP 36.6–37.2; O2SAT 85–95
[2021-07-07] MEDS: Insulin Lispro 100 UNIT/ML INSULN.PEN SC ×4 (06:37→22:55)
[2021-07-07 06:45] LABS: Bedside Glucose 282 mg/dL (70-110)
[2021-07-07 08:58] LABS: Absolute Lymphocyte Count 1.28 X10^3/uL (0.83-4.51); Absolute Neutrophil Count 4.9 X10^3/uL (2.0-7.7); Basophil# 0.01 X10^3/uL; Basophil% 0.1 % (0-1); Hematocrit 31.7 % (37-47); Hemoglobin 9.9 g/dL (12.0-15.0); Lymphocyte # 1.28 X10^3/ul (0.83-4.51); Lymphocyte % 18.8 % (19-41); Mean Corp Hgb Conc 31.2 g/dL (32-36); Mean Corpuscular Volume 86.6 fL (81-99); Mean Platelet Vol. 10.1 fl (6.2-12.0); Monocyte# 0.55 X10^3/uL; Monocyte% 8.1 % (0-10); NRBC Flagged by Analyzer 0 % (0-5); Neutrophil # 4.88 X10^3/uL (2.7-7.7); Neutrophil % 71.5 % (47-70); POSITIVE MORPHOLOGY YES; Platelet Count 386 K/mm3 (150-450); RBC Distribution Width CV 13.3 % (11.6-14.6); RBC Distribution Width SD 42.5 fl (35.1-43.9); Red Blood Count 3.66 M/mm3 (4.2-5.4); White Blood Count 6.8 K/mm3 (4.4-11.0)
[2021-07-07 09:05] LABS: Differential Indicated SCAN CRITERIA MET
[2021-07-07] MEDS: hydroCHLOROthiazide 25 MG Tablet PO (09:10)
[2021-07-07] MEDS: guaiFENesin 10 ML UDC (200MG/10ML) 20 ML PO ×2 (09:10→22:58)
[2021-07-07] MEDS: Acetaminophen 325 MG Tablet 650 MG PO (09:10)
[2021-07-07] MEDS: dexAMETHasone 4 MG/ML Vial 6 MG IV (09:10)
[2021-07-07] MEDS: Lisinopril 20 MG Tablet PO (09:10)
[2021-07-07] MEDS: 0.9% Saline Lock 10 ML Syringe IV ×2 (09:10→22:52)
[2021-07-07] MEDS: Enoxaparin 40 MG/0.4 ML Syringe SC ×2 (09:11→22:57)
[2021-07-07] MEDS: Ondansetron 4 MG/2 ML Vial IV (09:14)
[2021-07-07 09:18] LABS: Anion Gap 8 (5-15); BUN 27 mg/dL (7-18); BUN/Creat Ratio 24.3 RATIO (10-20); Calcium,Total 8.8 mg/dL (8.5-10.1); Chloride 102 mmol/L (98-107); Creatinine, Serum 1.11 mg/dL (0.55-1.02); EST Glomerular Filtration Rate 52 mL/min (>60); Est Glom Filt Rate - Afr Amer 63 mL/min (>60); Estimated Creatinine Clearance 39.96 ml/min; Glucose 261 mg/dL (74-106); Potassium 3.5 mmol/L (3.5-5.1); Sodium Level 137 mmol/L (136-145)
[2021-07-07 09:57] LABS: Differential Comment SCANNED; Reactive Lymphocyte 1+
[2021-07-07 11:50] LABS: Bedside Glucose 354 mg/dL (70-110)
--- NOTE | 2021-07-07 12:20 | PN.HOSP_ITS ---
Subjective Subjective Patient seen and examined. She was on 6 L. She said she had had a coughing spell that morning with her oxygen subsequently dropping that is where she had been put on 6 L. She is still coughing which I suspect to round. Review of systems otherwise negative. Objective Data Objective Data Vital Signs: Vital Signs Temp Pulse Resp BP Pulse Ox 98.4 F 74 18 114/62 90 07/07/21 09:10 07/07/21 09:10 07/07/21 09:10 07/07/21 09:10 07/07/21 11:59 Oxygen Flow Rate (L/min) [ 6 AMBULATING with Oxygen #1] Oxygen Flow Rate (L/min) [At 2 REST with Oxygen] Oxygen Flow Rate (L/min) 3 Oxygen Delivery Method Nasal Cannula Weight: 237 lb 14.06 oz Body Mass Index (BMI) 42.7 Intake & Output: Intake and Output for Last 24 Hours 07/05/21 07/06/21 07/07/21 23:59 23:59 23:59 Intake Total 2760 / 2760 1320 / 1320 360 / 360 Output Total 800 / 800 Balance 2760 / 2760 520 / 520 360 / 360 Lab / Micro Data Result Diagrams: 07/07/21 08:19 07/07/21 08:19 Labs: Laboratory Results - last 24 hr 07/06/21 16:46: POC Glucose 374 H 07/06/21 20:04: POC Glucose 418 H 07/07/21 06:36: POC Glucose 282 H 07/07/21 08:19: WBC 6.8, RBC 3.66 L, Hgb 9.9 L, Hct 31.7 L, MCV 86.6, MCH 27.0, MCHC 31.2 L, RDW Std Deviation 42.5, RDW Coeff of Adam 13.3, Plt Count 386, MPV 10.1, Immature Gran % (Auto) 1.500 H, Neut % (Auto) 71.5 H, Lymph % (Auto) 18.8 L, [place] % (Auto) 8.1, Eos % (Auto) 0.0, Baso % (Auto) 0.1, Absolute Neuts (auto) 4.9, Absolute Lymphs (auto) 1.28, Nucleated RBC % 0, Differential Comment SCANNED, Reactive Lymphocytes 1+ 07/07/21 08:19: Sodium 137, Potassium 3.5, Chloride 102, Carbon Dioxide 27.0, Anion Gap 8, BUN 27 H, Creatinine 1.11 H, Estim Creat Clear Calc 39.96, Est GFR (MDRD) Af Amer 63, Est GFR (MDRD) Non-Af 52 L, BUN/Creatinine Ratio 24.3 H, Glucose 261 H, Calcium 8.8 07/07/21 11:44: POC Glucose 354 H Micro: Microbiology 07/04/21 22:47 Blood Culture (Wb) - Anticubital Left Blood Culture - Preliminary No growth in 48 hours. 07/05/21 10:35 Sputum, Expectorated/Coughed Gram Stain - Final 07/05/21 10:35 Sputum, Expectorated/Coughed Respiratory Culture - Preliminary Appears to be normal respiratory jodee. Further studies to follow. 07/06/21 03:45 Urine, Random Legionella Antigen - Final 07/06/21 03:45 Urine, Clean Catch Streptococcus pneumoniae Antigen (M - Final Physical Exam Const alert, oriented x3 and no apparent distress Exam Limitations: no limitations Nutritional Appearance: morbidly obese HEENT head/scalp atraumatic and moist oral mucous membranes Head and Scalp: normocephalic Eyes PERRL, EOMs intact bilaterally and conjunctivae normal Neck no lymphadenopathy Resp Resp Narrative: diminished breath sounds bibasally, no wheezes or crackles. On 6L of oxygen by nasal canula at time of review Cardio regular rate, regular rhythm, S1 normal heart sound and S2 normal heart sound GI normal to inspection, nondistended, normoactive bowel sounds, soft to palpation, non-tender and non-distended Extremity normal to inspection, full ROM and no clubbing, cyanosis or edema Peripheral Pulses: Yes pulses 2+ throughout Skin no rashes or lesions noted Neuro oriented x3, CN's II-XII intact bilaterally and moves all extremities Sensorium / Orientation: awake and alert Psych affect normal Assessment & Plan Assessment/Plan (1) Pneumonia due to COVID-19 virus: (2) Acute hypoxemic respiratory failure: PLAN: #Acute hypoxic respiratory failure due to covid 19 pneumonia * on 6L of oxygen. Titrate to maintain sats >90% * on decadron * symptoms started 06/23/2021; to remain in self isolation till 07/13/2021. * not a candidate for remdesivir due to her symptoms starting > 10 days ago. * If respiratory status worsens, will consult ID as she may be a candidate for baricitinib. * #Hypertension: on lisinopril and HCTZ. IV hydralazine prn #Hyperlipidemia: on statin Elevated D-dimer: D-dimer was 1.19. CTA of the chest negative for PE. Likely due to COVID. #Type 2 diabetes mellitus: On insulin sliding scale. Checks ACH S. #Hyperlipidemia: On statin #Morbid obesity: BMI is 42.7. Complicates acute care, expected recovery and prognosis. #GI prophylaxis: Pantoprazole. DVT prophylaxis: Lovenox 40mg bid Charges/Coding Visit Charges Inpatient E&M: 90628 Subs Hosp L2
[2021-07-07 17:15] LABS: Bedside Glucose 403 mg/dL (70-110)
[2021-07-07] MEDS: Atorvastatin Calcium 80 MG Tablet PO (22:57)
[2021-07-07] MEDS: Loratadine 10 MG Tablet PO (22:57)
[2021-07-08] VITALS (13 sets, daily range): BP systolic 121–165; BP diastolic 58–65; PULSE 47–94; RESP 16–18; TEMP 36–37.1; O2SAT 90–98
[2021-07-08 00:40] LABS: Bedside Glucose 362 mg/dL (70-110)
[2021-07-08] MEDS: Insulin Lispro 100 UNIT/ML INSULN.PEN SC ×4 (06:39→22:46)
[2021-07-08 07:01] LABS: Bedside Glucose 248 mg/dL (70-110)
[2021-07-08] MEDS: Enoxaparin 40 MG/0.4 ML Syringe SC ×2 (08:40→22:48)
[2021-07-08] MEDS: dexAMETHasone 4 MG/ML Vial 6 MG IV (08:40)
[2021-07-08] MEDS: hydroCHLOROthiazide 25 MG Tablet PO (08:40)
[2021-07-08] MEDS: Lisinopril 20 MG Tablet PO (08:40)
[2021-07-08] MEDS: Pantoprazole Sodium 20 MG Tablet PO (08:40)
[2021-07-08 08:46] LABS: Basophil# 0.02 X10^3/uL; Basophil% 0.2 % (0-1); Eosinophil# 0.01 X10^3/uL; Eosinophils% 0.1 % (0-5); Hematocrit 31.9 % (37-47); Hemoglobin 10.2 g/dL (12.0-15.0); Lymphocyte % 17.5 % (19-41); Mean Corpuscular Hgb 27.7 pg (27.0-32.0); Mean Corpuscular Volume 86.7 fL (81-99); Monocyte# 0.78 X10^3/uL; NRBC Flagged by Analyzer 0 % (0-5); Neutrophil # 6.96 X10^3/uL (2.7-7.7); Neutrophil % 71.6 % (47-70); Platelet Count 399 K/mm3 (150-450); RBC Distribution Width CV 13.2 % (11.6-14.6); RBC Distribution Width SD 41.7 fl (35.1-43.9); Red Blood Count 3.68 M/mm3 (4.2-5.4); White Blood Count 9.7 K/mm3 (4.4-11.0)
[2021-07-08 09:01] LABS: Anion Gap 8 (5-15); BUN 25 mg/dL (7-18); BUN/Creat Ratio 23.6 RATIO (10-20); Calcium,Total 9.1 mg/dL (8.5-10.1); Chloride 99 mmol/L (98-107); Creatinine, Serum 1.06 mg/dL (0.55-1.02); EST Glomerular Filtration Rate 55 mL/min (>60); Est Glom Filt Rate - Afr Amer 67 mL/min (>60); Estimated Creatinine Clearance 41.85 ml/min; Glucose 268 mg/dL (74-106); Potassium 3.6 mmol/L (3.5-5.1); Sodium Level 136 mmol/L (136-145)
[2021-07-08 12:01] LABS: Bedside Glucose 360 mg/dL (70-110)
--- NOTE | 2021-07-08 14:50 | PN.HOSP_ITS ---
Subjective Subjective Patient seen and examined. She still complains of weakness. She still remains short of breath. She is on 6L of oxygen today. She is still coughing. Review of systems is otherwise negative. Objective Data Objective Data Vital Signs: Vital Signs Temp Pulse Resp BP Pulse Ox 98.1 F 74 16 134/58 H 93 07/08/21 11:54 07/08/21 11:54 07/08/21 11:54 07/08/21 11:54 07/08/21 11:54 Oxygen Flow Rate (L/min) [ 6 AMBULATING with Oxygen #1] Oxygen Flow Rate (L/min) [At 2 REST with Oxygen] Oxygen Flow Rate (L/min) 6 Oxygen Delivery Method Nasal Cannula Weight: 238 lb 1.588 oz Body Mass Index (BMI) 42.7 Intake & Output: Intake and Output for Last 24 Hours 07/06/21 07/07/21 07/08/21 23:59 23:59 23:59 Intake Total 1320 / 1320 840 / 840 Output Total 800 / 800 Balance 520 / 520 840 / 840 Lab / Micro Data Result Diagrams: 07/08/21 08:13 07/08/21 08:13 Labs: Laboratory Results - last 24 hr 07/07/21 17:09: POC Glucose 403 H 07/07/21 22:54: POC Glucose 362 H 07/08/21 06:37: POC Glucose 248 H 07/08/21 08:13: WBC 9.7, RBC 3.68 L, Hgb 10.2 L, Hct 31.9 L, MCV 86.7, MCH 27.7, MCHC 32.0, RDW Std Deviation 41.7, RDW Coeff of Adam 13.2, Plt Count 399, MPV 10.0, Immature Gran % (Auto) 2.600 H, Neut % (Auto) 71.6 H, Lymph % (Auto) 17.5 L, [place] % (Auto) 8.0, Eos % (Auto) 0.1, Baso % (Auto) 0.2, Absolute Neuts (auto) 7.0, Absolute Lymphs (auto) 1.70, Nucleated RBC % 0 07/08/21 08:13: Sodium 136, Potassium 3.6, Chloride 99, Carbon Dioxide 29.0, An ion Gap 8, BUN 25 H, Creatinine 1.06 H, Estim Creat Clear Calc 41.85, Est GFR (MDRD) Af Amer 67, Est GFR (MDRD) Non-Af 55 L, BUN/Creatinine Ratio 23.6 H, Glucose 268 H, Calcium 9.1 07/08/21 11:52: POC Glucose 360 H Micro: Microbiology 07/05/21 10:35 Sputum, Expectorated/Coughed Gram Stain - Final 07/05/21 10:35 Sputum, Expectorated/Coughed Respiratory Culture - Final Mixed normal respiratory jodee. No Streptococcus pneumoniae, beta-hemolytic Streptococcus or Staphylococcus aureus isolated. 07/04/21 22:47 Blood Culture (Wb) - Anticubital Left Blood Culture - Preliminary No growth in 48 hours. 07/06/21 03:45 Urine, Random Legionella Antigen - Final 07/06/21 03:45 Urine, Clean Catch Streptococcus pneumoniae Antigen (M - Final Physical Exam Const alert, oriented x3 and no apparent distress Exam Limitations: no limitations Nutritional Appearance: morbidly obese HEENT head/scalp atraumatic and moist oral mucous membranes Head and Scalp: normocephalic Eyes PERRL, EOMs intact bilaterally and conjunctivae normal Neck no lymphadenopathy Resp Resp Narrative: diminished breath sounds bibasally, no wheezes or crackles. On 6L of oxygen by nasal canula at time of review Cardio regular rate, regular rhythm, S1 normal heart sound and S2 normal heart sound GI normal to inspection, nondistended, normoactive bowel sounds, soft to palpation, non-tender and non-distended Extremity normal to inspection, full ROM and no clubbing, cyanosis or edema Peripheral Pulses: Yes pulses 2+ throughout Skin no rashes or lesions noted Neuro oriented x3, CN's II-XII intact bilaterally and moves all extremities Sensorium / Orientation: awake and alert Psych affect normal Assessment & Plan Assessment/Plan (1) Pneumonia due to COVID-19 virus: (2) Acute hypoxemic respiratory failure: PLAN: #Acute hypoxic respiratory failure due to covid 19 pneumonia * on 6L of oxygen. Titrate to maintain sats >90% * on decadron * symptoms started 06/23/2021; to remain in self isolation till 07/13/2021. * not a candidate for remdesivir due to her symptoms starting > 10 days prior to admission. * consider ID consult if respiratory status worsens. * #Hypertension: on lisinopril and HCTZ. IV hydralazine prn #Hyperlipidemia: on statin Elevated D-dimer: D-dimer was 1.19. CTA of the chest negative for PE. Likely due to COVID. #Type 2 diabetes mellitus: On insulin sliding scale. Checks ACH S. #Hyperlipidemia: On statin #Morbid obesity: BMI is 42.7. Complicates acute care, expected recovery and prognosis. #GI prophylaxis: Pantoprazole. DVT prophylaxis: Lovenox 40mg bid Charges/Coding Visit Charges Inpatient E&M: 34522 Subs Hosp L2
[2021-07-08 17:20] LABS: Bedside Glucose 431 mg/dL (70-110)
[2021-07-08] MEDS: 0.9% Saline Lock 10 ML Syringe IV (22:45)
[2021-07-08] MEDS: Atorvastatin Calcium 80 MG Tablet PO (22:49)
[2021-07-08] MEDS: Loratadine 10 MG Tablet PO (22:49)
[2021-07-08] MEDS: Acetaminophen 325 MG Tablet 650 MG PO (22:53)
[2021-07-08 23:10] LABS: Bedside Glucose 415 mg/dL (70-110)
[2021-07-09] VITALS (12 sets, daily range): BP systolic 115–152; BP diastolic 61–76; PULSE 49–95; RESP 16–18; TEMP 36.2–37.1; O2SAT 92–98
[2021-07-09] MEDS: Insulin Lispro 100 UNIT/ML INSULN.PEN SC ×4 (06:25→16:17)
[2021-07-09 06:31] LABS: Bedside Glucose 294 mg/dL (70-110)
[2021-07-09 07:14] LABS: Hematocrit 32.7 % (37-47); Hemoglobin 10.5 g/dL (12.0-15.0); Mean Corp Hgb Conc 32.1 g/dL (32-36); Mean Corpuscular Hgb 27.6 pg (27.0-32.0); Mean Corpuscular Volume 86.1 fL (81-99); POSITIVE COUNT YES; POSITIVE MORPHOLOGY YES; Platelet Count 437 K/mm3 (150-450); RBC Distribution Width CV 13.1 % (11.6-14.6); RBC Distribution Width SD 40.8 fl (35.1-43.9); White Blood Count 9.5 K/mm3 (4.4-11.0)
[2021-07-09 07:15] LABS: Differential Indicated MANUAL DIFF
[2021-07-09 07:37] LABS: Eosinophil 1 % (0-5); Lymphocyte 18 % (19-41); Metamyelocyte 4 % (0-1); Neutrophil-Band 2 % (0-5); Neutrophil-Segmented 75 % (47-70); Platelet Estimate ADEQUATE (ADEQ); Platelet Morphology LARGE; Red Cell Morphology NORM C+C NORMAL (NORM C&C); Total Cells Counted 100 (MANUAL DIFF)
[2021-07-09 07:38] LABS: Anion Gap 9 (5-15); BUN 28 mg/dL (7-18); BUN/Creat Ratio 25.9 RATIO (10-20); Calcium,Total 9.8 mg/dL (8.5-10.1); Chloride 97 mmol/L (98-107); Creatinine, Serum 1.08 mg/dL (0.55-1.02); EST Glomerular Filtration Rate 54 mL/min (>60); Est Glom Filt Rate - Afr Amer 65 mL/min (>60); Estimated Creatinine Clearance 41.07 ml/min; Glucose 309 mg/dL (74-106); Potassium 4.1 mmol/L (3.5-5.1); Sodium Level 135 mmol/L (136-145)
[2021-07-09 07:42] LABS: Absolute Lymphocyte Count 1.71 X10^3/uL (0.83-4.51); Absolute Neutrophil Count 7.3 X10^3/uL (2.0-7.7); Lymphocyte # 1.71 X10^3/ul (0.83-4.51); Neutrophil # 7.31 X10^3/uL (2.7-7.7)
[2021-07-09] MEDS: 0.9% Saline Lock 10 ML Syringe IV ×3 (10:12→16:29)
[2021-07-09] MEDS: dexAMETHasone 4 MG/ML Vial 6 MG IV (10:12)
[2021-07-09] MEDS: Lisinopril 20 MG Tablet PO (10:12)
[2021-07-09] MEDS: Enoxaparin 40 MG/0.4 ML Syringe SC ×2 (10:12→20:57)
[2021-07-09] MEDS: hydroCHLOROthiazide 25 MG Tablet PO (10:12)
[2021-07-09 11:45] LABS: Bedside Glucose 372 mg/dL (70-110)
[2021-07-09 14:29] LABS: Pathologist Review Reviewed
--- NOTE | 2021-07-09 15:02 | PN.HOSP_ITS ---
Subjective Subjective Feels about the same as yesterday however she did have an increase in her oxygen requirements today to about 12 L nasal cannula. Continue to encourage ambulation as well as proning and incentive spirometry Objective Data Objective Data Vital Signs: Vital Signs Temp Pulse Resp BP Pulse Ox 97.1 F L 71 18 146/64 H 92 07/09/21 09:49 07/09/21 13:04 07/09/21 09:49 07/09/21 09:49 07/09/21 09:49 Oxygen Flow Rate (L/min) [ 6 AMBULATING with Oxygen #1] Oxygen Flow Rate (L/min) [At 2 REST with Oxygen] Oxygen Flow Rate (L/min) 12 Oxygen Delivery Method Nasal Cannula Weight: 235 lb 0.204 oz Body Mass Index (BMI) 42.7 Intake & Output: Intake and Output for Last 24 Hours 07/08/21 07/09/21 07/10/21 03:59 03:59 03:59 Intake Total 840 / 840 600 / 600 Output Total 1200 / 1200 1000 / 1000 Balance 840 / 840 -600 / -600 -1000 / -1000 Lab / Micro Data Result Diagrams: 07/09/21 07:00 07/09/21 07:00 Labs: Laboratory Results - last 24 hr 07/08/21 17:06: POC Glucose 431 H 07/08/21 22:42: POC Glucose 415 H 07/09/21 06:24: POC Glucose 294 H 07/09/21 07:00: WBC 9.5, RBC 3.80 L, Hgb 10.5 L, Hct 32.7 L, MCV 86.1, MCH 27.6, MCHC 32.1, RDW Std Deviation 40.8, RDW Coeff of Adam 13.1, Plt Count 437, MPV 10.0, Neut % (Auto) Not Reportable, Absolute Neuts (auto) 7.3, Absolute Lymphs (auto) 1.71, Total Counted 100, Neutrophils % (Manual) 75 H, Band Neutrophils % 2, Lymphocytes % (Manual) 18 L, Eosinophils % (Manual) 1, Metamyelocytes % 4 H, Diff Path Review Reviewed, Platelet Estimate ADEQUATE, Plt Morphology Comment LARGE, RBC Morphology NORM C+C 07/09/21 07:00: Sodium 135 L, Potassium 4.1, Chloride 97 L, Carbon Dioxide 29.0, Anion Gap 9, BUN 28 H, Creatinine 1.08 H, Estim Creat Clear Calc 41.07, Est GFR (MDRD) Af Amer 65, Est GFR (MDRD) Non-Af 54 L, BUN/Creatinine Ratio 25.9 H, Glucose 309 H, Calcium 9.8 07/09/21 11:38: POC Glucose 372 H Micro: Microbiology 07/05/21 10:35 Sputum, Expectorated/Coughed Gram Stain - Final 07/05/21 10:35 Sputum, Expectorated/Coughed Respiratory Culture - Final Mixed normal respiratory jodee. No Streptococcus pneumoniae, beta-hemolytic Streptococcus or Staphylococcus aureus isolated. 07/04/21 22:47 Blood Culture (Wb) - Anticubital Left Blood Culture - Preliminary No growth in 48 hours. 07/06/21 03:45 Urine, Random Legionella Antigen - Final 07/06/21 03:45 Urine, Clean Catch Streptococcus pneumoniae Antigen (M - Final Physical Exam Const alert, oriented x3 and no apparent distress General Appearance: cooperative HEENT normocephalic and moist oral mucous membranes Eyes PERRL, EOMs intact bilaterally and conjunctivae normal Neck supple and no JVD Resp normal respiratory effort, no retractions and no use of accessory muscles Auscultation: crackles and diminished lung sounds; Negative for rales, rhonchi or wheezes Cardio regular rate, regular rhythm, S1 normal heart sound, S2 normal heart sound and no murmurs GI soft to palpation, non-tender and non-distended; Negative for hepatosplenomegaly Extremity no clubbing, cyanosis or edema Skin no rashes or lesions noted Neuro no focal motor deficits and no sensory deficits noted Psych Mood & Affect: flat affect Assessment & Plan Assessment/Plan (1) Pneumonia due to COVID-19 virus: (2) Acute hypoxemic respiratory failure: PLAN: #Acute hypoxic respiratory failure due to covid 19 pneumonia * Delete titrate to maintain sats >90% * on decadron * symptoms started 06/23/2021; to remain in self isolation till 07/13/2021. * not a candidate for remdesivir due to her symptoms starting > 10 days prior to admission. * Will obtain a sputum culture today as well as give her some Lasix secondary to crackles on exam * If necessary can consult infectious disease and pulmonology if she progresses to needing Airvo, for initiation of baricitinib * D-dimer was elevated, CTA was negative for PE #Hypertension: on lisinopril and HCTZ. IV hydralazine prn #Hyperlipidemia: on statin #Type 2 diabetes mellitus: On insulin sliding scale. Accu-Cheks AC at bedtime, will make adjustments as necessary #Hyperlipidemia: On statin #Morbid obesity: BMI is 42.7. Complicates acute care, expected recovery and prognosis. #GI prophylaxis: Pantoprazole. DVT: Lovenox 40mg bid Charges/Coding Visit Charges Inpatient E&M: 72466 Subs Hosp L2
[2021-07-09] MEDS: Furosemide 40 MG/4 ML Vial IV (16:19)
--- NOTE | 2021-07-09 16:31 | CASEMGMT ---
Amelia at [facility] aware that pt is currently on 11-12L oxygen and no plan for d/c at this time, voices understanding. Tyson JERNIGAN CM
[2021-07-09 16:40] LABS: Bedside Glucose 452 mg/dL (70-110)
[2021-07-09] MEDS: Acetaminophen 325 MG Tablet 650 MG PO (20:56)
[2021-07-09] MEDS: Atorvastatin Calcium 80 MG Tablet PO (20:56)
[2021-07-09] MEDS: Loratadine 10 MG Tablet PO (20:56)
--- NOTE | 2021-07-09 21:00 | NURSING ---
Pt's glucose elevated at 536. This RN notified (Dr. Luis) per order. ordered a one time dose of 18 units of humalog to be given. No additional orders at this time.
[2021-07-09 21:05] LABS: Bedside Glucose > 500 mg/dL (70-110)
[2021-07-09] MEDS: Insulin Lispro 100 UNIT/ML INSULN.PEN 18 UNIT SC (21:47)
[2021-07-10] VITALS (9 sets, daily range): BP systolic 119–129; BP diastolic 59–64; PULSE 54–92; RESP 16–17; TEMP 36–36.6; O2SAT 95–99
[2021-07-10 06:54] LABS: Hematocrit 32.8 % (37-47); Hemoglobin 10.4 g/dL (12.0-15.0); Mean Corp Hgb Conc 31.7 g/dL (32-36); Mean Corpuscular Hgb 27.3 pg (27.0-32.0); Mean Corpuscular Volume 86.1 fL (81-99); Mean Platelet Vol. 10.1 fl (6.2-12.0); POSITIVE COUNT YES; POSITIVE MORPHOLOGY YES; Platelet Count 459 K/mm3 (150-450); RBC Distribution Width SD 40.4 fl (35.1-43.9); Red Blood Count 3.81 M/mm3 (4.2-5.4); White Blood Count 9.8 K/mm3 (4.4-11.0)
[2021-07-10 06:56] LABS: Differential Indicated MANUAL DIFF
[2021-07-10 07:10] LABS: Neutrophil-Segmented 72 % (47-70); Total Cells Counted 100 (MANUAL DIFF)
[2021-07-10 07:11] LABS: Lymphocyte 18 % (19-41); Metamyelocyte 2 % (0-1); Monocyte 8 % (0-10)
[2021-07-10 07:12] LABS: Absolute Lymphocyte Count 1.76 X10^3/uL (0.83-4.51); Absolute Neutrophil Count 7.3 X10^3/uL (2.0-7.7); Lymphocyte # 1.76 X10^3/ul (0.83-4.51); Neutrophil # 7.25 X10^3/uL (2.7-7.7)
[2021-07-10 07:14] LABS: Anion Gap 8 (5-15); BUN 40 mg/dL (7-18); BUN/Creat Ratio 33.3 RATIO (10-20); Calcium,Total 9.6 mg/dL (8.5-10.1); Chloride 94 mmol/L (98-107); EST Glomerular Filtration Rate 48 mL/min (>60); Est Glom Filt Rate - Afr Amer 58 mL/min (>60); Estimated Creatinine Clearance 36.97 ml/min; Glucose 395 mg/dL (74-106); Platelet Estimate SLT INC (ADEQ); Red Cell Morphology NORM C+C NORMAL (NORM C&C); Sodium Level 133 mmol/L (136-145)
[2021-07-10] MEDS: Insulin Lispro 100 UNIT/ML INSULN.PEN SC ×4 (09:39→22:12)
[2021-07-10] MEDS: Insulin Lispro 100 UNIT/ML INSULN.PEN 10 UNIT SC ×2 (09:41→11:02)
[2021-07-10 09:51] LABS: Bedside Glucose 393 mg/dL (70-110)
[2021-07-10] MEDS: Enoxaparin 40 MG/0.4 ML Syringe SC ×2 (11:01→22:11)
[2021-07-10] MEDS: dexAMETHasone 4 MG/ML Vial 6 MG IV (11:01)
[2021-07-10] MEDS: Lisinopril 20 MG Tablet PO (11:01)
[2021-07-10] MEDS: hydroCHLOROthiazide 25 MG Tablet PO (11:01)
[2021-07-10] MEDS: Pantoprazole Sodium 20 MG Tablet PO (11:01)
[2021-07-10] MEDS: 0.9% Saline Lock 10 ML Syringe IV (11:02)
[2021-07-10 12:40] LABS: Bedside Glucose 371 mg/dL (70-110)
[2021-07-10 13:36] LABS: Pathologist Review Reviewed
--- NOTE | 2021-07-10 13:49 | PN.HOSP_ITS ---
Subjective Subjective Feels better now that her blood sugars are being managed as well as the Lasix. She still has some crackles on exam today Objective Data Objective Data Vital Signs: Vital Signs Temp Pulse Resp BP Pulse Ox 96.8 F L 74 16 129/63 H 95 07/10/21 11:07 07/10/21 11:07 07/10/21 11:07 07/10/21 11:07 07/10/21 11:07 Oxygen Flow Rate (L/min) [ 6 AMBULATING with Oxygen #1] Oxygen Flow Rate (L/min) [At 2 REST with Oxygen] Oxygen Flow Rate (L/min) 7 Oxygen Delivery Method Nasal Cannula Weight: 230 lb 8 oz Body Mass Index (BMI) 42.7 Intake & Output: Intake and Output for Last 24 Hours 07/09/21 07/10/21 07/11/21 03:59 03:59 03:59 Intake Total 600 / 600 120 / 120 Output Total 1200 / 1200 2600 / 2600 Balance -600 / -600 -2480 / -2480 Lab / Micro Data Result Diagrams: 07/10/21 06:36 07/10/21 06:36 Labs: Laboratory Results - last 24 hr 07/09/21 07:00: Diff Path Review Reviewed 07/09/21 16:11: POC Glucose 452 H* 07/09/21 20:55: POC Glucose > 500 H* 07/10/21 06:36: WBC 9.8, RBC 3.81 L, Hgb 10.4 L, Hct 32.8 L, MCV 86.1, MCH 27.3, MCHC 31.7 L, RDW Std Deviation 40.4, RDW Coeff of Adam 13.0, Plt Count 459 H, MPV 10.1, Neut % (Auto) Not Reportable, Absolute Neuts (auto) 7.3, Absolute Lymphs (auto) 1.76, Total Counted 100, Neutrophils % (Manual) 72 H, Lymphocytes % (Manual) 18 L, Monocytes % (Manual) 8, Metamyelocytes % 2 H, Diff Path Review Reviewed, Platelet Estimate SLT INC, RBC Morphology NORM C+C 07/10/21 06:36: Sodium 133 L, Potassium 4.0, Chloride 94 L, Carbon Dioxide 31.0, Anion Gap 8, BUN 40 H, Creatinine 1.20 H, Estim Creat Clear Calc 36.97, Est GFR (MDRD) Af Amer 58 L, Est GFR (MDRD) Non-Af 48 L, BUN/Creatinine Ratio 33.3 H, Glucose 395 H, Calcium 9.6 07/10/21 09:38: POC Glucose 393 H 07/10/21 10:59: POC Glucose 371 H Micro: Microbiology 07/04/21 22:47 Blood Culture (Wb) - Anticubital Left Blood Culture - Final No growth in 5 days. 07/05/21 10:35 Sputum, Expectorated/Coughed Gram Stain - Final 07/05/21 10:35 Sputum, Expectorated/Coughed Respiratory Culture - Final Mixed normal respiratory jodee. No Streptococcus pneumoniae, beta-hemolytic Streptococcus or Staphylococcus aureus isolated. 07/06/21 03:45 Urine, Random Legionella Antigen - Final 07/06/21 03:45 Urine, Clean Catch Streptococcus pneumoniae Antigen (M - Final Physical Exam Narrative Const alert, oriented x3 and no apparent distress General Appearance: cooperative HEENT normocephalic and moist oral mucous membranes Eyes PERRL, EOMs intact bilaterally and conjunctivae normal Neck supple and no JVD Resp normal respiratory effort, no retractions and no use of accessory muscles Auscultation: crackles and diminished lung sounds; Negative for rales, rhonchi or wheezes Cardio regular rate, regular rhythm, S1 normal heart sound, S2 normal heart sound and no murmurs GI soft to palpation, non-tender and non-distended; Negative for hepatosplenomegaly Extremity no clubbing, cyanosis or edema Skin no rashes or lesions noted Neuro no focal motor deficits and no sensory deficits noted Psych Mood & Affect: flat affect Assessment & Plan Assessment/Plan (1) Pneumonia due to COVID-19 virus: (2) Acute hypoxemic respiratory failure: PLAN: #Acute hypoxic respiratory failure due to covid 19 pneumonia * Delete titrate to maintain sats >90% * on decadron * symptoms started 06/23/2021; to remain in self isolation till 07/13/2021. * not a candidate for remdesivir due to her symptoms starting > 10 days prior to admission. * Sputum on 07/05/2021 had mixed normal jodee * Will trial on Lasix again today given the improvement that she had. Creatinine is at 1.2 therefore will be cautious and monitor * If necessary can consult infectious disease and pulmonology if she progresses to needing Airvo, for initiation of baricitinib * D-dimer was elevated, CTA was negative for PE #Hypertension: on lisinopril and HCTZ. IV hydralazine prn #Hyperlipidemia: on statin #Type 2 diabetes mellitus: On insulin sliding scale. Accu-Cheks AC at bedtime, will make adjustments as necessary #Hyperlipidemia: On statin #Morbid obesity: BMI is 42.7. Complicates acute care, expected recovery and prognosis. #GI prophylaxis: Pantoprazole. DVT: Lovenox 40mg bid Charges/Coding Visit Charges Inpatient E&M: 35346 Subs Hosp L2
[2021-07-10] MEDS: Insulin Lispro 100 UNIT/ML INSULN.PEN 15 UNIT SC (18:17)
[2021-07-10] MEDS: Furosemide 20 MG/2 ML VIAL IV (18:17)
[2021-07-10 18:31] LABS: Bedside Glucose 391 mg/dL (70-110)
[2021-07-10] MEDS: Atorvastatin Calcium 80 MG Tablet PO (22:11)
[2021-07-10] MEDS: Acetaminophen 325 MG Tablet 650 MG PO (22:11)
[2021-07-10] MEDS: Loratadine 10 MG Tablet PO (22:11)
[2021-07-10 22:20] LABS: Bedside Glucose 320 mg/dL (70-110)
[2021-07-11] VITALS (14 sets, daily range): BP systolic 107–138; BP diastolic 56–72; PULSE 56–74; RESP 17–18; TEMP 36.3–36.9; O2SAT 83–98
[2021-07-11 06:30] LABS: Absolute Lymphocyte Count 2.16 X10^3/uL (0.83-4.51); Absolute Neutrophil Count 8.2 X10^3/uL (2.0-7.7); Basophil# 0.02 X10^3/uL; Basophil% 0.2 % (0-1); Eosinophil# 0.04 X10^3/uL; Eosinophils% 0.3 % (0-5); Hematocrit 32.8 % (37-47); Hemoglobin 10.6 g/dL (12.0-15.0); Lymphocyte # 2.16 X10^3/ul (0.83-4.51); Mean Corp Hgb Conc 32.3 g/dL (32-36); Mean Corpuscular Hgb 27.4 pg (27.0-32.0); Mean Corpuscular Volume 84.8 fL (81-99); Mean Platelet Vol. 10.4 fl (6.2-12.0); Monocyte# 1.11 X10^3/uL; Monocyte% 9.2 % (0-10); NRBC Flagged by Analyzer 0 % (0-5); Neutrophil # 8.17 X10^3/uL (2.7-7.7); Neutrophil % 68.1 % (47-70); Platelet Count 482 K/mm3 (150-450); RBC Distribution Width CV 13.2 % (11.6-14.6); RBC Distribution Width SD 40.1 fl (35.1-43.9); Red Blood Count 3.87 M/mm3 (4.2-5.4)
[2021-07-11 06:51] LABS: Anion Gap 8 (5-15); BUN 47 mg/dL (7-18); BUN/Creat Ratio 39.2 RATIO (10-20); Calcium,Total 9.6 mg/dL (8.5-10.1); Chloride 92 mmol/L (98-107); EST Glomerular Filtration Rate 48 mL/min (>60); Est Glom Filt Rate - Afr Amer 58 mL/min (>60); Estimated Creatinine Clearance 36.97 ml/min; Glucose 291 mg/dL (74-106); Potassium 3.9 mmol/L (3.5-5.1); Sodium Level 131 mmol/L (136-145)
[2021-07-11] MEDS: Insulin Lispro 100 UNIT/ML INSULN.PEN SC ×4 (09:11→20:26)
[2021-07-11] MEDS: Insulin Lispro 100 UNIT/ML INSULN.PEN 20 UNIT SC ×2 (09:12→16:45)
[2021-07-11] MEDS: Enoxaparin 40 MG/0.4 ML Syringe SC ×2 (09:15→20:21)
[2021-07-11] MEDS: dexAMETHasone 4 MG/ML Vial 6 MG IV (09:17)
[2021-07-11] MEDS: 0.9% Saline Lock 10 ML Syringe IV ×2 (09:17→13:37)
[2021-07-11] MEDS: Lisinopril 20 MG Tablet PO (09:20)
[2021-07-11] MEDS: hydroCHLOROthiazide 25 MG Tablet PO (09:20)
[2021-07-11 09:40] LABS: Bedside Glucose 310 mg/dL (70-110)
[2021-07-11] MEDS: Acetaminophen 325 MG Tablet 650 MG PO (11:25)
[2021-07-11 11:31] LABS: Bedside Glucose 321 mg/dL (70-110)
--- NOTE | 2021-07-11 12:26 | PN.HOSP_ITS ---
Subjective Subjective Doing well, feels better today. He is maintaining oxygen sats today at rest on 3 L nasal cannula however she did require over 6 L with ambulation Objective Data Objective Data Vital Signs: Vital Signs Temp Pulse Resp BP Pulse Ox 97.6 F L 73 18 138/72 H 85 07/11/21 09:10 07/11/21 11:00 07/11/21 09:10 07/11/21 09:10 07/11/21 09:33 Oxygen Flow Rate (L/min) [ 5 AMBULATING with Oxygen #1] Oxygen Flow Rate (L/min) [At 5 REST with Oxygen] Oxygen Flow Rate (L/min) [At 0 REST on Room Air] Oxygen Flow Rate (L/min) 3 Oxygen Delivery Method Nasal Cannula Weight: 231 lb 4.238 oz Body Mass Index (BMI) 42.7 Intake & Output: Intake and Output for Last 24 Hours 07/10/21 07/11/21 07/12/21 03:59 03:59 03:59 Intake Total 120 / 120 200 / 200 340 / 340 Output Total 2600 / 2600 Balance -2480 / -2480 200 / 200 340 / 340 Lab / Micro Data Result Diagrams: 07/11/21 05:25 07/11/21 05:25 Labs: Laboratory Results - last 24 hr 07/10/21 06:36: Diff Path Review Reviewed 07/10/21 10:59: POC Glucose 371 H 07/10/21 18:16: POC Glucose 391 H 07/10/21 22:10: POC Glucose 320 H 07/11/21 05:25: WBC 12.0 H, RBC 3.87 L, Hgb 10.6 L, Hct 32.8 L, MCV 84.8, MCH 27.4, MCHC 32.3, RDW Std Deviation 40.1, RDW Coeff of Adam 13.2, Plt Count 482 H, MPV 10.4, Immature Gran % (Auto) 4.200 H, Neut % (Auto) 68.1, Lymph % (Auto) 18.0 L, [place] % (Auto) 9.2, Eos % (Auto) 0.3, Baso % (Auto) 0.2, Absolute Neuts (auto) 8.2 H, Absolute Lymphs (auto) 2.16, Nucleated RBC % 0 07/11/21 05:25: Sodium 131 L, Potassium 3.9, Chloride 92 L, Carbon Dioxide 31.0, Anion Gap 8, BUN 47 H, Creatinine 1.20 H, Estim Creat Clear Calc 36.97, Est GFR (MDRD) Af Amer 58 L, Est GFR (MDRD) Non-Af 48 L, BUN/Creatinine Ratio 39.2 H, Glucose 291 H, Calcium 9.6 07/11/21 08:52: POC Glucose 310 H 07/11/21 11:21: POC Glucose 321 H Micro: Microbiology 07/04/21 22:47 Blood Culture (Wb) - Anticubital Left Blood Culture - Final No growth in 5 days. 07/05/21 10:35 Sputum, Expectorated/Coughed Gram Stain - Final 07/05/21 10:35 Sputum, Expectorated/Coughed Respiratory Culture - Final Mixed normal respiratory jodee. No Streptococcus pneumoniae, beta-hemolytic Streptococcus or Staphylococcus aureus isolated. 07/06/21 03:45 Urine, Random Legionella Antigen - Final 07/06/21 03:45 Urine, Clean Catch Streptococcus pneumoniae Antigen (M - Final Physical Exam Narrative Const alert, oriented x3 and no apparent distress General Appearance: cooperative HEENT normocephalic and moist oral mucous membranes Eyes PERRL, EOMs intact bilaterally and conjunctivae normal Neck supple and no JVD Resp normal respiratory effort, no retractions and no use of accessory muscles Auscultation: Minimal crackles and diminished lung sounds; Negative for rales, rhonchi or wheezes Cardio regular rate, regular rhythm, S1 normal heart sound, S2 normal heart sound and no murmurs GI soft to palpation, non-tender and non-distended; Negative for hepatosplenomegaly Extremity no clubbing, cyanosis or edema Skin no rashes or lesions noted Neuro no focal motor deficits and no sensory deficits noted Psych Mood & Affect: flat affect Assessment & Plan Assessment/Plan (1) Pneumonia due to COVID-19 virus: (2) Acute hypoxemic respiratory failure: PLAN: #Acute hypoxic respiratory failure due to covid 19 pneumonia * on decadron * symptoms started 06/23/2021; to remain in self isolation till 07/13/2021. * not a candidate for remdesivir due to her symptoms starting > 10 days prior to admission. * Sputum on 07/05/2021 had mixed normal jodee * Will trial on Lasix again today given the improvement that she had. Creatinine is at 1.2 therefore will be cautious and monitor * If necessary can consult infectious disease and pulmonology if she progresses to needing Airvo, for initiation of baricitinib * D-dimer was elevated, CTA was negative for PE #Hypertension: on lisinopril and HCTZ. IV hydralazine prn #Hyperlipidemia: on statin #Type 2 diabetes mellitus: On insulin sliding scale. Accu-Cheks AC at bedtime, will make adjustments as necessary #Hyperlipidemia: On statin #Morbid obesity: BMI is 42.7. Complicates acute care, expected recovery and prognosis. #GI prophylaxis: Pantoprazole. DVT: Lovenox 40mg bid Charges/Coding Visit Charges Inpatient E&M: 00617 Subs Hosp L2
[2021-07-11] MEDS: Furosemide 20 MG/2 ML VIAL IV (13:37)
[2021-07-11 17:01] LABS: Bedside Glucose 435 mg/dL (70-110)
[2021-07-11] MEDS: Loratadine 10 MG Tablet PO (20:22)
[2021-07-11] MEDS: Atorvastatin Calcium 80 MG Tablet PO (20:22)
[2021-07-11 20:36] LABS: Bedside Glucose 455 mg/dL (70-110)
[2021-07-11 21:35] LABS: Glucose 419 mg/dL (74-106)
[2021-07-12] VITALS (10 sets, daily range): BP systolic 112–130; BP diastolic 58–65; PULSE 55–77; RESP 12–18; TEMP 35.8–37; O2SAT 87–97
[2021-07-12 07:32] LABS: Hematocrit 35.5 % (37-47); Hemoglobin 11.3 g/dL (12.0-15.0); Mean Corp Hgb Conc 31.8 g/dL (32-36); Mean Corpuscular Hgb 27.2 pg (27.0-32.0); Mean Corpuscular Volume 85.5 fL (81-99); Mean Platelet Vol. 10.4 fl (6.2-12.0); POSITIVE COUNT YES; POSITIVE MORPHOLOGY YES; Platelet Count 574 K/mm3 (150-450); RBC Distribution Width SD 40.5 fl (35.1-43.9); Red Blood Count 4.15 M/mm3 (4.2-5.4)
[2021-07-12 07:38] LABS: Differential Indicated MANUAL DIFF
[2021-07-12 07:52] LABS: Anion Gap 8 (5-15); BUN 52 mg/dL (7-18); BUN/Creat Ratio 38.2 RATIO (10-20); Calcium,Total 9.7 mg/dL (8.5-10.1); Chloride 94 mmol/L (98-107); Creatinine, Serum 1.36 mg/dL (0.55-1.02); EST Glomerular Filtration Rate 41 mL/min (>60); Est Glom Filt Rate - Afr Amer 50 mL/min (>60); Estimated Creatinine Clearance 32.62 ml/min; Glucose 275 mg/dL (74-106); Potassium 3.4 mmol/L (3.5-5.1); Sodium Level 133 mmol/L (136-145)
[2021-07-12 08:26] LABS: Lymphocyte 22 % (19-41); Monocyte 3 % (0-10); Neutrophil-Band 2 % (0-5); Neutrophil-Segmented 73 % (47-70); Platelet Estimate ADEQUATE (ADEQ); Red Cell Morphology NORM C+C NORMAL (NORM C&C); Total Cells Counted 100 (MANUAL DIFF)
[2021-07-12 08:27] LABS: Absolute Lymphocyte Count 3.08 X10^3/uL (0.83-4.51); Absolute Neutrophil Count 10.5 X10^3/uL (2.0-7.7)
[2021-07-12] MEDS: dexAMETHasone 4 MG/ML Vial 6 MG IV (08:30)
[2021-07-12] MEDS: Lisinopril 20 MG Tablet PO (08:30)
[2021-07-12] MEDS: hydroCHLOROthiazide 25 MG Tablet PO (08:30)
[2021-07-12] MEDS: Enoxaparin 40 MG/0.4 ML Syringe SC ×2 (08:30→21:29)
[2021-07-12] MEDS: Pantoprazole Sodium 20 MG Tablet PO (08:30)
[2021-07-12] MEDS: 0.9% Saline Lock 10 ML Syringe IV (08:31)
[2021-07-12] MEDS: Insulin Lispro 100 UNIT/ML INSULN.PEN SC ×4 (08:32→21:29)
[2021-07-12 08:46] LABS: Bedside Glucose 276 mg/dL (70-110)
[2021-07-12 11:16] LABS: Bedside Glucose 369 mg/dL (70-110)
[2021-07-12] MEDS: Insulin Lispro 100 UNIT/ML INSULN.PEN 30 UNIT SC ×2 (12:55→16:47)
[2021-07-12 13:00] LABS: Bedside Glucose 396 mg/dL (70-110)
--- NOTE | 2021-07-12 14:22 | CASEMGMT ---
Addendum entered by Alycia Palmer 07/12/21 14:27: Pt updated on all, voices understanding. Tyson JERNIGAN CM Original Note: Amelia at [facility] updated that pt likely to discharge today or tomorrow, voices understanding and states they can do SOC 07/14/21. Pt qualifies for increased home oxygen at discharge, 4L w/ exertion and new order faxed to [facility] at [phone] and they were also notified via phone about pt's need for increased home oxygen, voiced understanding. Tyson JERNIGAN CM
--- NOTE | 2021-07-12 15:22 | PN.HOSP_ITS ---
Subjective Subjective She is doing well and feels better she was able to walk on 4 L nasal cannula with a sat of 89% she did feel short of breath at that time. Unfortunately her white count is climbing her creatinine is little bit elevated Objective Data Objective Data Vital Signs: Vital Signs Temp Pulse Resp BP Pulse Ox 98.6 F 77 12 116/60 95 07/12/21 15:01 07/12/21 15:01 07/12/21 15:01 07/12/21 15:01 07/12/21 15:01 Oxygen Flow Rate (L/min) [ 4 AMBULATING with Oxygen #2] Oxygen Flow Rate (L/min) [ 2 AMBULATING with Oxygen #1] Oxygen Flow Rate (L/min) [At 2 REST with Oxygen] Oxygen Flow Rate (L/min) [At 0 REST on Room Air] Oxygen Flow Rate (L/min) 2 Oxygen Delivery Method Nasal Cannula Weight: 230 lb 2.601 oz Body Mass Index (BMI) 42.7 Intake & Output: Intake and Output for Last 24 Hours 07/11/21 07/12/21 07/13/21 03:59 03:59 03:59 Intake Total 200 / 200 1260 / 1260 460 / 460 Output Total 550 / 550 Balance 200 / 200 710 / 710 460 / 460 Lab / Micro Data Result Diagrams: 07/12/21 06:37 07/12/21 06:37 Labs: Laboratory Results - last 24 hr 07/11/21 16:44: POC Glucose 435 H 07/11/21 20:24: POC Glucose 455 H* 07/11/21 21:00: Glucose 419 H 07/12/21 06:37: WBC 14.0 H, RBC 4.15 L, Hgb 11.3 L, Hct 35.5 L, MCV 85.5, MCH 27.2, MCHC 31.8 L, RDW Std Deviation 40.5, RDW Coeff of Adam 13.0, Plt Count 574 H, MPV 10.4, Neut % (Auto) Not Reportable, Absolute Neuts (auto) 10.5 H, Absolu te Lymphs (auto) 3.08, Total Counted 100, Neutrophils % (Manual) 73 H, Band N eutrophils % 2, Lymphocytes % (Manual) 22, Monocytes % (Manual) 3, Diff Path Review October, Platelet Estimate ADEQUATE, RBC Morphology NORM C+C 07/12/21 06:37: Sodium 133 L, Potassium 3.4 L, Chloride 94 L, Carbon Dioxide 31.0, Anion Gap 8, BUN 52 H, Creatinine 1.36 H, Estim Creat Clear Calc 32.62, Est GFR (MDRD) Af Amer 50 L, Est GFR (MDRD) Non-Af 41 L, BUN/Creatinine Ratio 38.2 H, Glucose 275 H, Calcium 9.7 07/12/21 08:25: POC Glucose 276 H 07/12/21 10:53: POC Glucose 369 H 07/12/21 12:53: POC Glucose 396 H Micro: Microbiology 07/04/21 22:47 Blood Culture (Wb) - Anticubital Left Blood Culture - Final No growth in 5 days. 07/05/21 10:35 Sputum, Expectorated/Coughed Gram Stain - Final 07/05/21 10:35 Sputum, Expectorated/Coughed Respiratory Culture - Final Mixed normal respiratory jodee. No Streptococcus pneumoniae, beta-hemolytic Streptococcus or Staphylococcus aureus isolated. 07/06/21 03:45 Urine, Random Legionella Antigen - Final 07/06/21 03:45 Urine, Clean Catch Streptococcus pneumoniae Antigen (M - Final Physical Exam Narrative Const alert, oriented x3 and no apparent distress General Appearance: cooperative HEENT normocephalic and moist oral mucous membranes Eyes PERRL, EOMs intact bilaterally and conjunctivae normal Neck supple and no JVD Resp normal respiratory effort, no retractions and no use of accessory muscles Auscultation: Minimal crackles and diminished lung sounds; Negative for rales, rhonchi or wheezes Cardio regular rate, regular rhythm, S1 normal heart sound, S2 normal heart sound and no murmurs GI soft to palpation, non-tender and non-distended; Negative for hepatosplenomegaly Extremity no clubbing, cyanosis or edema Skin no rashes or lesions noted Neuro no focal motor deficits and no sensory deficits noted Psych Mood & Affect: flat affect Assessment & Plan Assessment/Plan (1) Pneumonia due to COVID-19 virus: (2) Acute hypoxemic respiratory failure: PLAN: #Acute hypoxic respiratory failure due to covid 19 pneumonia * on decadron * symptoms started 06/23/2021; to remain in self isolation till 07/13/2021. * not a candidate for remdesivir due to her symptoms starting > 10 days prior to admission. * Sputum on 07/05/2021 had mixed normal jodee * Creatinine has continued to climb to 1.36, will continue to monitor and hold off Lasix * Will start her on empiric antibiotics secondary to a rising white count and obtain a chest x-ray * If necessary can consult infectious disease and pulmonology if she progresses to needing Airvo, for initiation of baricitinib * D-dimer was elevated, CTA was negative for PE #Hypertension: on lisinopril and HCTZ. IV hydralazine prn #Hyperlipidemia: on statin #Type 2 diabetes mellitus: On insulin sliding scale. Accu-Cheks AC at bedtime, will make adjustments as necessary #Hyperlipidemia: On statin #Morbid obesity: BMI is 42.7. Complicates acute care, expected recovery and prognosis. #GI prophylaxis: Pantoprazole. DVT: Lovenox 40mg bid Charges/Coding Visit Charges Inpatient E&M: 07286 Subs Hosp L2
--- NOTE | 2021-07-12 15:32 | CASEMGMT ---
Per Dr. Mendoza, pt will not d/c today as she has increased WBC count. CM to follow. Tyson JERNIGAN CM
--- NOTE | 2021-07-12 15:50 | RAD_ITS ---
STUDY: X-RAY CHEST REASON FOR EXAM: Female, 66 years old. CHEST PAIN SOB / SOA Pneumonia TECHNIQUE: XR Chest 2 Views COMPARISON: 07.04.21 FINDINGS: There is no demonstrated pleural abnormality. There is bilateral infiltrate. Normal size heart. Normal mediastinum and aura. Normal visualized pulmonary arteries. There is atherosclerotic calcification of the aortic arch with tortuosity. There are diffuse degenerative changes of the visualized thoracic spine. There is degenerative osteoarthritis of the bilateral shoulders. There is no demonstrated abnormality of the visualized soft tissue structures of the upper abdomen. RAD/Chest PA and Lateral IMPRESSION: Bilateral pneumonia. Electronically Signed: Alex Laughlin MD at 21:58 EST , Service support ,
[2021-07-12] MEDS: Ceftriaxone 1 GM/50 ML BAG IV (16:41)
[2021-07-12] MEDS: Potassium Chloride Oral Tablet 20 MEQ 60 MEQ PO (16:44)
[2021-07-12 16:55] LABS: Bedside Glucose 306 mg/dL (70-110)
[2021-07-12] MEDS: Atorvastatin Calcium 80 MG Tablet PO (21:30)
[2021-07-12] MEDS: Loratadine 10 MG Tablet PO (21:30)
[2021-07-12 22:25] LABS: Bedside Glucose 234 mg/dL (70-110)
[2021-07-13] VITALS (10 sets, daily range): BP systolic 112–128; BP diastolic 54–67; PULSE 53–81; RESP 16–18; TEMP 36.1–36.3; O2SAT 87–98
[2021-07-13 06:17] LABS: Absolute Lymphocyte Count 2.62 X10^3/uL (0.83-4.51); Absolute Neutrophil Count 7.1 X10^3/uL (2.0-7.7); Basophil# 0.03 X10^3/uL; Basophil% 0.3 % (0-1); Eosinophil# 0.02 X10^3/uL; Eosinophils% 0.2 % (0-5); Hematocrit 32.9 % (37-47); Hemoglobin 10.6 g/dL (12.0-15.0); Lymphocyte # 2.62 X10^3/ul (0.83-4.51); Mean Corp Hgb Conc 32.2 g/dL (32-36); Mean Corpuscular Hgb 27.7 pg (27.0-32.0); Mean Corpuscular Volume 85.9 fL (81-99); Mean Platelet Vol. 10.4 fl (6.2-12.0); Monocyte# 1.17 X10^3/uL; Monocyte% 10.3 % (0-10); NRBC Flagged by Analyzer 0 % (0-5); Neutrophil # 7.08 X10^3/uL (2.7-7.7); Neutrophil % 62.2 % (47-70); Platelet Count 446 K/mm3 (150-450); Red Blood Count 3.83 M/mm3 (4.2-5.4); White Blood Count 11.4 K/mm3 (4.4-11.0)
[2021-07-13 06:36] LABS: Anion Gap 7 (5-15); BUN 47 mg/dL (7-18); BUN/Creat Ratio 39.8 RATIO (10-20); Calcium,Total 9.4 mg/dL (8.5-10.1); Chloride 99 mmol/L (98-107); Creatinine, Serum 1.18 mg/dL (0.55-1.02); EST Glomerular Filtration Rate 49 mL/min (>60); Est Glom Filt Rate - Afr Amer 59 mL/min (>60); Estimated Creatinine Clearance 37.59 ml/min; Glucose 171 mg/dL (74-106); Magnesium 1.8 mg/dL (1.6-2.6); Potassium 4.2 mmol/L (3.5-5.1); Sodium Level 135 mmol/L (136-145)
[2021-07-13 06:41] LABS: Phosphorus 3.8 mg/dL (2.5-4.9)
[2021-07-13] MEDS: Insulin Lispro 100 UNIT/ML INSULN.PEN SC ×2 (07:52→11:35)
[2021-07-13 08:01] LABS: Bedside Glucose 157 mg/dL (70-110)
[2021-07-13] MEDS: Ceftriaxone 1 GM/50 ML BAG IV (09:28)
[2021-07-13] MEDS: 0.9% Saline Lock 10 ML Syringe IV (09:29)
[2021-07-13] MEDS: hydroCHLOROthiazide 25 MG Tablet PO (09:34)
[2021-07-13] MEDS: Lisinopril 20 MG Tablet PO (09:34)
[2021-07-13] MEDS: Enoxaparin 40 MG/0.4 ML Syringe SC (09:34)
[2021-07-13] MEDS: dexAMETHasone 4 MG/ML Vial 6 MG IV (09:34)
--- NOTE | 2021-07-13 10:13 | PCM.DC ---
Discharge Instructions Diet Discharge Diet: Low fat / Low cholesterol and Carb Control Diet Activity Discharge Activity: Return to Normal Activity Dressing / Incision Call your doctor if you observe: Fever of 101 or Higher, Shortness of breath, Dizziness, Fainting spells, Swelling in the ankles, Chest pain and Increased palpitations (irregular heartbeat) Follow Up Care Test Results: Test results from this visit will be discussed in further detail at your follow-up appointment, if applicable. Discharge Plan Admission Admit Date/Time: 07/04/21 23:57 Attending Provider: Sean Mendoza Primary Care Provider: Nico Guaman Instructions Additional Instructions / Restrictions: Follow-up with your PCP in 3 to 5 days to monitor your respiratory status. I also recommend repeating a CBC and a BMP to monitor your hemoglobin as well as her leukocytosis which is coming down as well as her renal function. Discharge Orders/Prescriptions Prescriptions: New azithromycin 500 mg tablet 500 mg PO DAILY 2 Days Qty: 2 RF: 0 cefdinir 300 mg capsule 300 mg PO BID 5 Days Qty: 10 RF: 0 Continued pioglitazone 15 mg Tablet 15 mg PO DAILY RF: 0 atorvastatin 80 mg Tablet 80 mg PO QHS RF: 0 metformin 850 mg Tablet 850 mg PO TID RF: 0 lisinopril-hydrochlorothiazide 20-25 mg Tablet 1 tab PO DAILY RF: 0 glyburide 1.25 mg Tablet 1.25 mg PO BID RF: 0 omeprazole-sodium bicarbonate [Zegerid] 20-1,680 mg Packet 1 packet PO QODAY RF: 0 loratadine 10 mg Capsule 10 mg PO QHS RF: 0 Referrals / Follow Up: Nico Guaman DO [Primary Care Provider] - Within 1 Week Disposition Disposition (needs filled in before D/C Order can be placed): Home, Self Care
--- NOTE | 2021-07-13 10:25 | CASEMGMT ---
Call to Amelia at [facility] to notify of pt discharge today, voices understanding and she states SOC will be tomorrow. Pt updated and states son will bring portable tank and [facility] is delivering home concentrator today. Pt voices no further questions/concerns/needs. Tyson JERNIGAN CM
[2021-07-13] MEDS: Insulin Lispro 100 UNIT/ML INSULN.PEN 30 UNIT SC (11:35)
[2021-07-13 11:36] LABS: Bedside Glucose 340 mg/dL (70-110)
--- NOTE | 2021-07-13 14:11 | DS.PCM_ITS ---
Providers Date of Admission: 07/04/21 Primary Care Physician: Nico Guaman DO Reason For Visit: COVID PNA, ACUTE RESPIRATORY FAILURE Diagnosis Discharge Diagnosis (1) Pneumonia due to COVID-19 virus: Status: Acute Code(s): U07.1 - COVID-19; J12.82 - Pneumonia due to coronavirus disease 2019 (2) Acute hypoxemic respiratory failure: Status: Acute Code(s): J96.01 - Acute respiratory failure with hypoxia Medications at Discharge Home Medications atorvastatin 80 mg PO QHS 07/05/21 glyburide 1.25 mg PO BID 07/05/21 lisinopril-hydrochlorothiazide 1 tab PO DAILY 07/05/21 loratadine 10 mg PO QHS 07/05/21 metformin 850 mg PO TID 07/05/21 omeprazole-sodium bicarbonate [Zegerid] 1 packet PO QODAY 07/05/21 pioglitazone 15 mg PO DAILY 07/05/21 azithromycin 500 mg PO DAILY 2 Days #2 tab 07/13/21 cefdinir 300 mg PO BID 5 Days #10 cap 07/13/21 Hospital Course Operations None Procedures None Summary of Care Provided Minutes Spent on Discharge: 43 Hospital Course: Per HPI: The patient is a 66 y/o F w/ PMHx: Morbid Obesity, Suspected chronic anemia, HTN, HLD, Diabetes mellitus type II, Former tobacco use who presents to the [facility] ED on 07/04/21 with history of COVID symptoms including fever, chills, headache, sore throat, mild altered sense of taste and smell, body aches, nausea, emesis, diarrhea all of those which have lessened however she still has ongoing cough and shortness of breath which has been worsening starting 06/23/21 w ith positive COVID testing on 06/25/21 in [place] with reported evaluation in the ED at [facility] 2 days prior to current presentation with discharge on supplemental 2L NC oxygen and administration of steroids; however, she had increased dyspnea with low 80s oxygenation on 2-3L at home with more severe dyspnea on day of ED presentation prompting re-evaluation. Patient is not vaccinated against COVID-19. Work-up in the ED included T99.4, heart rate 97, BP 109/83, respiratory rate 14, initial presentation noted to be 93% on a nonrebreather with 15 L, CBC with WBC 4.9, hemoglobin 10.5, platelet 226 without marked shift, D-dimer 1.19, BMP with sodium 134, potassium 3.3, BUN/current and 30/1.28, glucose 235, lactic acid 1.9, high-sensitivity troponin 12, chest x- ray with bibasilar pulmonary infiltrates consistent with COVID-pneumonia, blood culture pending per ED, CTPA with diffuse multifocal pneumonia consistent with COVID-pneumonia with reactive hilar and mediastinal lymph nodes with no central or segmental PE or arterial dissection. In the ED patient ministered Decadron 6 mg IV x1 as well as normal saline. Hospital Course: #Acute hypoxic respiratory failure due to covid 19 pneumonia on decadron symptoms started 06/23/2021; to remain in self isolation till 07/13/2021. not a candidate for remdesivir due to her symptoms starting > 10 days prior to admission. Sputum on 07/05/2021 had mixed normal jodee Creatinine has continued to climb to 1.36, will continue to monitor and hold off Lasix Will start her on empiric antibiotics secondary to a rising white count and obtain a chest x-ray If necessary can consult infectious disease and pulmonology if she progresses to needing Airvo, for initiation of baricitinib D-dimer was elevated, CTA was negative for PE 07/13/2021: Doing well today, she requires about 5 L with ambulation but is doing well. Yesterday she did have a rise in her white blood cell count as well as in her creatinine therefore she was held 1 more night. Both her white count are down after being started on antibiotics chest x-ray does demonstrate bilateral pneumonias which can be a hold over from her COVID-19 pneumonia. Her creatinine also improved. We will plan on discharging her to complete an outpatient course of azithromycin and cefdinir for possible bacterial pneumonia. Held off on Lasix secondary to her tenuous renal function, discharge and is 1.18. Do recommend that she follow-up with her PCP in 3 to 5 days for outpatient follow- up of note her blood sugars have been very difficult to control here while on the Decadron therefore I elected to not discharge her on Decadron as she has rec eived 8 out of the 10 doses she normally would have received. I discussed with her the plan for discharge and she expressed understanding of the risk benefits of going home and would like to go home today. #Hypertension: on lisinopril and HCTZ. IV hydralazine prn #Hyperlipidemia: on statin #Type 2 diabetes mellitus: On insulin sliding scale. Accu-Cheks AC at bedtime, will make adjustments as necessary ? Can resume her home diabetic medications on discharge #Hyperlipidemia: On statin #Morbid obesity: BMI is 42.7. Complicates acute care, expected recovery and prognosis. #GI prophylaxis: Pantoprazole. Physical Exam Narrative Const alert, oriented x3 and no apparent distress General Appearance: cooperative HEENT normocephalic and moist oral mucous membranes Eyes PERRL, EOMs intact bilaterally and conjunctivae normal Neck supple and no JVD Resp normal respiratory effort, no retractions and no use of accessory muscles Auscultation: Minimal crackles and diminished lung sounds; Negative for rales, rhonchi or wheezes Cardio regular rate, regular rhythm, S1 normal heart sound, S2 normal heart sound and no murmurs GI soft to palpation, non-tender and non-distended; Negative for hepatosplenomegaly Extremity no clubbing, cyanosis or edema Skin no rashes or lesions noted Neuro no focal motor deficits and no sensory deficits noted Psych Mood & Affect: flat affect Weight / BMI Weight Weight: 232 lb 9.403 oz Body Mass Index (BMI) 42.7 ABG / Lab / Microbiology Data Result Diagrams: 07/13/21 06:00 07/13/21 06:00 Laboratory: Laboratory Results - last 24 hr 07/12/21 16:46: POC Glucose 306 H 07/12/21 21:25: POC Glucose 234 H 07/13/21 06:00: WBC 11.4 H, RBC 3.83 L, Hgb 10.6 L, Hct 32.9 L, MCV 85.9, MCH 27.7, MCHC 32.2, RDW Std Deviation 40.0, RDW Coeff of Adam 13.0, Plt Count 446, MPV 10.4, Immature Gran % (Auto) 4.000 H, Neut % (Auto) 62.2, Lymph % (Auto) 23 .0, [place] % (Auto) 10.3 H, Eos % (Auto) 0.2, Baso % (Auto) 0.3, Absolute Neuts (auto) 7.1, Absolute Lymphs (auto) 2.62, Nucleated RBC % 0 07/13/21 06:00: Sodium 135 L, Potassium 4.2, Chloride 99, Carbon Dioxide 29.0, Anion Gap 7, BUN 47 H, Creatinine 1.18 H, Estim Creat Clear Calc 37.59, Est GFR (MDRD) Af Amer 59 L, Est GFR (MDRD) Non-Af 49 L, BUN/Creatinine Ratio 39.8 H, Glucose 171 H, Calcium 9.4, Magnesium 1.8 07/13/21 06:00: Phosphorus 3.8 07/13/21 07:51: POC Glucose 157 H 07/13/21 11:27: POC Glucose 340 H Microbiology: Microbiology 07/04/21 22:47 Blood Culture (Wb) - Anticubital Left Blood Culture - Final No growth in 5 days. 07/05/21 10:35 Sputum, Expectorated/Coughed Gram Stain - Final 07/05/21 10:35 Sputum, Expectorated/Coughed Respiratory Culture - Final Mixed normal respiratory jodee. No Streptococcus pneumoniae, beta-hemolytic Streptococcus or Staphylococcus aureus isolated. 07/06/21 03:45 Urine, Random Legionella Antigen - Final 07/06/21 03:45 Urine, Clean Catch Streptococcus pneumoniae Antigen (M - Final Radiography Diagnostic Testing: Radiology Impression Chest X-Ray 07/12/21 15:50 IMPRESSION: Bilateral pneumonia. Electronically Signed: Alex Laughlin MD at 21:58 EST , Service support , D/C Instructions Discharge Diet: Low fat / Low cholesterol and Carb Control Diet Call your doctor if you observe: Fever of 101 or Higher, Shortness of breath, Dizziness, Fainting spells, Swelling in the ankles, Chest pain and Increased palpitations (irregular heartbeat) Meaningful Use Info Meaningful Use Diagnoses (Choose all that apply): None applicable Discharge Plan Admission Admit Date/Time: 07/04/21 23:57 Attending Provider: Sean Mendoza Primary Care Provider: Nico Guaman Instructions Additional Instructions / Restrictions: Follow-up with your PCP in 3 to 5 days to monitor your respiratory status. I also recommend repeating a CBC and a BMP to monitor your hemoglobin as well as her leukocytosis which is coming down as well as her renal function. Discharge Orders/Prescriptions Prescriptions: New azithromycin 500 mg tablet 500 mg PO DAILY 2 Days Qty: 2 RF: 0 cefdinir 300 mg capsule 300 mg PO BID 5 Days Qty: 10 RF: 0 Continued pioglitazone 15 mg Tablet 15 mg PO DAILY RF: 0 atorvastatin 80 mg Tablet 80 mg PO QHS RF: 0 metformin 850 mg Tablet 850 mg PO TID RF: 0 lisinopril-hydrochlorothiazide 20-25 mg Tablet 1 tab PO DAILY RF: 0 glyburide 1.25 mg Tablet 1.25 mg PO BID RF: 0 omeprazole-sodium bicarbonate [Zegerid] 20-1,680 mg Packet 1 packet PO QODAY RF: 0 loratadine 10 mg Capsule 10 mg PO QHS RF: 0 Referrals / Follow Up: Nico Guaman DO [Primary Care Provider] - Within 1 Week Disposition Disposition (needs filled in before D/C Order can be placed): Home, Self Care Charges/Coding Visit Charges Inpatient E&M: 35357 Disch Hosp
[2021-07-16 09:22] LABS: Pathologist Review Reviewed
== END 2021-07-13 17:45 | disposition home health service (06) | DRG 177 ==
LOC: ED 07-05 00:04 → PCU 07-05 00:41
PROVIDERS: Student in an Organized Health Care Education/Training Program; Admitting Provider Family Medicine; Emergency Provider Emergency Medicine; PCP Family Medicine; Visit Provider Family Medicine
DX: U07.1 COVID-19 (principal); J12.82 Pneumonia due to coronavirus disease 2019; J96.01 Acute respiratory failure with hypoxia; Z68.41 Body mass index [BMI] 40.0-44.9, adult; E11.9 Type 2 diabetes mellitus without complications; E66.01 Morbid (severe) obesity due to excess calories; E78.5 Hyperlipidemia, unspecified; D64.9 Anemia, unspecified; I10 Essential (primary) hypertension; Z87.891 Personal history of nicotine dependence; Z99.81 Dependence on supplemental oxygen; Z79.899 Other long term (current) drug therapy; Z79.84 Long term (current) use of oral hypoglycemic drugs
CPT/HCPCS: 36415; 71045; 71046; 71275; 80048; 80053; 82728; 82947; 82962; 83605; 83735; 83880; 84100; 84145; 84484; 85025; 85379; 86140; 87040; 87070; 87205; 87449; 93005; 94762; 97110; 97116; 97162; 97166; 97530; 97535; 97803; 99251; 99285; J7030; Q9967; A4216; G0463; J1940; J2405

== ENCOUNTER 2021-09-21 17:42 | Outpatient (CLI) | payer MEDICARE, SELFPAY ==
--- NOTE | 2021-09-21 17:50 | CT_ITS ---
ACR Level 3 findings have been noted. An addendum which confirms receipt of the report will follow. STUDY: CT FACIAL BONES WITHOUT CONTRAST REASON FOR EXAM: Female, 66 years old. SINUSITIS RADIATION DOSAGE (If Supplied By Facility): CTDIvol = (33.06) mGy, DLP = ( 796.66 ) mGycm TECHNIQUE: The patient was scanned in a multi detector CT scanner. Sagittal and coronal images were reconstructed. 1.25 mm axials, 1.2 mm coronal and sagittal reconstructions. Individualized dose optimization techniques were used for this CT. COMPARISON: None. LIMITATIONS: None. ORBITS: Normal. NASAL BONES: Normal NASOETHMOID COMPLEX: Normal. ZYGOMATIC ARCHES: Normal. MAXILLAE: Several broken and eroded teeth and root canals and periapical lucencies in the bilateral lateral maxilla. PTERYGOID PLATES: Normal. MANDIBLE: Normal. SINUSES: Mucous retention cyst in the floor of the left maxillary sinus. Slight mucosal thickening in a few ethmoid air cells. Slight mucosal thickening and tiny cysts in the sphenoid sinuses and in the floor of the right maxillary sinus. No intrasinus fluid levels. SOFT TISSUES: Normal. OTHER: Almost completely opacified left middle ear and mastoid sinuses, left external auditory canal is patent. The left ossicles appear intact. Hyperostosis of the frontal bones. The head is included. No obvious acute intracranial abnormality. CT/Sinus/Facial Bone IMPRESSION: Marked opacification of almost the entire left middle ear and the entire left mastoid sinuses. Patent left external auditory canal. Please correlate with evidence of otitis media and mastoid effusion. No obvious bone destruction involving the mastoids and no overlying or adjacent fluid collections are identified. Minimal chronic paranasal sinusitis. No intrasinus fluid. Advanced dental changes. Electronically Signed: Anamaria Benites MD at 22:33 EDT ,
== END 2021-09-21 23:59 | disposition home or self-care (01) ==
LOC: CT 17:45
PROVIDERS: Referring Provider Otolaryngology; Visit Provider Otolaryngology
DX: J32.8 Other chronic sinusitis (principal)
CPT/HCPCS: 70486

== ENCOUNTER → 2022-02-21 | Outpatient (CLI) | payer MEDICARE, SELFPAY ==
--- NOTE | 2022-02-21 11:12 | EKG12_ITS ---
Test Reason : PRE OP Blood Pressure : / mmHG Vent. Rate : 069 BPM Atrial Rate : 069 BPM P-R Int : 132 ms QRS Dur : 086 ms QT Int : 396 ms P-R-T Axes : 059 020 067 degrees QTc Int : 424 ms Normal sinus rhythm Low voltage QRS Borderline ECG Confirmed by ALLYSON PIERRE, MOOK ([id number]), photo editor NATASHA RAMIREZ ([id number]) on 02/22/2022 2:07:56 PM Referred By: Lei Sadler Confirmed By:ISABELLA VALADEZ MD
[2022-02-21 12:32] LABS: Hematocrit 32.9 % (37-47); Hemoglobin 10.3 g/dL (12.0-15.0); Mean Corp Hgb Conc 31.3 g/dL (32-36); Mean Corpuscular Hgb 28.6 pg (27.0-32.0); Mean Corpuscular Volume 91.4 fL (81-99); Platelet Count 245 K/mm3 (150-450); RBC Distribution Width CV 14.5 % (11.6-14.6); RBC Distribution Width SD 48.4 fl (35.1-43.9); White Blood Count 5.7 K/mm3 (4.4-11.0)
[2022-02-21 13:07] LABS: Anion Gap 9 (5-15); BUN 23 mg/dL (7-18); BUN/Creat Ratio 13.1 RATIO (10-20); Calcium,Total 9.2 mg/dL (8.5-10.1); Chloride 105 mmol/L (98-107); Creatinine, Serum 1.76 mg/dL (0.55-1.02); EST Glomerular Filtration Rate 31 mL/min (>60); Est Glom Filt Rate - Afr Amer 37 mL/min (>60); Glucose 116 mg/dL (74-106); Potassium 3.6 mmol/L (3.5-5.1); Sodium Level 142 mmol/L (136-145)
== END | disposition home or self-care (01) ==
LOC: PSN 10:57
PROVIDERS: Referring Provider Otolaryngology; Visit Provider Otolaryngology
DX: Z01.818 Encounter for other preprocedural examination (principal)
CPT/HCPCS: 36415; 80048; 85027; 93005